=== PATIENT | female | born 1955 | race American Indian/Alaskan Native ===

== ENCOUNTER 2018-04-06 17:02 | Emergency (ER) | payer SELFPAY ==
[2018-04-06 17:20] VITALS: BP 139/83
== END 2018-04-06 18:10 | disposition left against medical advice (07) ==
LOC: ED 17:02
DX: R07.89 Other chest pain (principal); Z53.21 Procedure and treatment not carried out due to patient leaving prior to being seen by health care provider
CPT/HCPCS: 93005; 93010

== ENCOUNTER 2018-06-17 11:44 | Emergency (ER) | payer MEDICARE ==
[2018-06-17 11:50] VITALS: BP 117/77
--- NOTE | 2018-06-17 12:26 | Emergency Department Report ---
Minor Respiratory - HPI Chief Complaint: Upper Respiratory Infection Stated Complaint: CHEST COLD Time Seen by Provider: 06/17/18 12:13 Duration: 2 Days Pain Location: Chest Severity: moderate Minor Respiratory: Yes Rhinorrhea, Yes Able to Tolerate Fluids, Yes Cough (patient states this pain in her chest when she coughs she has a cough productive of yellowish sputum), Yes Chest Pain, No Sore Throat, No Ear Pain, No Sick Contacts, No Hemoptysis, No Shortness of Breath, No Fever ED Review of Systems ROS: Stated complaint: CHEST COLD Other details as noted in HPI Comment: All other systems reviewed and negative ED Past Medical Hx - Past Medical History Hx Hypertension: Yes Hx GERD: Yes Hx Arthritis: Yes Hx Asthma: Yes 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 - Surgical History Additional Surgical History: c/s, hyst, lump from under arm, lump from hip - Social History Smoking Status: Never Smoker Substance Use Type: Alcohol - Medications Home Medications: Home Medications Medication Instructions Recorded Confirmed Last Taken Type ALBUTEROL Inhaler (OR & NICU) 2 puff IH QID PRN #1 inhalation 06/17/18 Unknown Rx [ProAir HFA Inhaler] Azithromycin [Zithromax Z-GERARDO] 250 mg PO DAILY #6 tablet 06/17/18 Unknown Rx Benzonatate [Tessalon Perles] 100 mg PO Q8HR #10 capsule 06/17/18 Unknown Rx predniSONE [Deltasone] 10 mg PO .TAPER #21 tab 06/17/18 Unknown Rx Minor Respiratory Exam - Exam General: Vital signs noted. No distress. Alert and acting appropriately. HEENT: Yes Moist Mucous Membranes, No Pharyngeal Erythema, No Pharyngeal Exudates, No Rhinorrhea, No Conjuctival Injection, No Frontal Tenderness, No Maxillary Tenderness Ear: Neither TM Bulge, Neither TM Erythema, Neither EAC Pain, Neither EAC Discharge Neck: Yes Supple, No Adenopathy Lungs: Yes Good Air Exchange, Yes Cough, No Wheezes, No Ronchi, No Stridor, No Labored Respirations, No Retractions, No Use of Accessory Muscles, No Other Abnormal Lung Sounds Heart: Yes Regular, No Murmur Abdomen: Yes Normal Bowel Sounds, No Tenderness, No Peritoneal Signs Skin: No Rash, No Edema Neurologic: Alert and oriented, no deficits. Musculoskeletal: Unremarkable. ED Course Vital Signs 06/17/18 11:46 Temperature 97.7 F Pulse Rate 88 Respiratory 20 Rate Blood Pressure 117/77 O2 Sat by Pulse 100 Oximetry ED Medical Decision Making - Radiology Data Radiology results: image reviewed - Medical Decision Making States that she has a chronic cough for last 3 years and has been told she has acid reflux as well as this chronic cough but feels as though she has not been given a definitive diagnosis. The patient states this is been sick with this cold since her cough is worse. Patient be started on Ms. symptomatic relief for upper respiratory infection patient be given follow-up with primary care pulmonology and GI here in [place] so she's just moved here. Critical care attestation.: If time is entered above; I have spent that time in minutes in the direct care of this critically ill patient, excluding procedure time. ED Disposition Clinical Impression: Acute bronchitis Disposition: DC-01 TO HOME OR SELFCARE Is pt being admited?: No Does the pt Need Aspirin: No Condition: Stable Instructions: Acute Bronchitis (ED) Referrals: STAR BERNABE MD [Primary Care Provider] - 3-5 Days LUIS SPAIN MD [Staff Physician] - 7-10 days ROBSON STOVALL MD [Staff Physician] - 7-10 days Time of Disposition: 14:46
--- NOTE | 2018-06-17 13:13 | XRay Report ---
ROUTINE CHEST, TWO VIEWS: HISTORY: Productive cough. The trachea, heart, mediastinal contour, lung melgar and bony thorax are unremarkable. IMPRESSION: Unremarkable chest x-ray.
== END 2018-06-17 15:03 | disposition home or self-care (01) ==
LOC: ED 11:44
DX: J20.9 Acute bronchitis, unspecified (principal)
CPT/HCPCS: 71046

== ENCOUNTER 2018-07-17 18:25 | Emergency (ER) | payer MEDICARE ==
[2018-07-17] MEDS ORDERED: LIDOCAINE VISCOUS 2% PO ONE (19:04)
[2018-07-17] MEDS ORDERED: PROTONIX IV ONE (19:04)
[2018-07-17] MEDS ORDERED: NACL 0.9% 1000 ML 1,000 ML IV ONE (19:04)
[2018-07-17 19:18] LABS: Basophils # (Auto) 0.1 K/mm3 (0.0-0.1); Basophils % (Auto) 0.9 % (0.0-1.8); Eosinophils # (Auto) 0.1 K/mm3 (0.0-0.4); Eosinophils % (Auto) 0.9 % (0.0-4.3); Hematocrit 41.2 % (30.3-42.9); Hemoglobin 13.5 gm/dl (10.1-14.3); Lymphocytes # (Auto) 1.7 K/mm3 (1.2-5.4); Lymphocytes % (Auto) 27.5 % (13.4-35.0); Mean Corpuscular HGB Conc 33 % (30-34); Mean Corpuscular Volume 85 fl (79-97); Monocytes # (Auto) 0.4 K/mm3 (0.0-0.8); Monocytes % (Auto) 6.5 % (0.0-7.3); Platelet Count 242 K/mm3 (140-440); Red Blood Count 4.86 M/mm3 (3.65-5.03); Red Cell Distribution Width 13.6 % (13.2-15.2)
[2018-07-17 19:37] LABS: Albumin 4.4 g/dL (3.9-5); BUN/Creatinine Ratio 17; Blood Urea Nitrogen 15 mg/dL (7-17); Calcium 9.5 mg/dL (8.4-10.2); Hemolysis Index 167
[2018-07-17 19:52] LABS: Alanine Aminotransferase 13 units/L (7-56)
--- NOTE | 2018-07-17 20:01 | XRay Report ---
FINAL REPORT EXAM: XR CHEST 1V AP HISTORY: chest pain TECHNIQUE: Frontal portable view of the chest Comparison: None FINDINGS: There is no evidence of infiltrate, pneumothorax or pleural fluid collection. The cardiac silhouette appears to be normal size. The thoracic aorta is mildly tortuous. The bony structures are unremarkable. IMPRESSION: 1. No evidence of an acute pulmonary process. If further imaging is required, CT chest may be helpful.
[2018-07-17 20:16] LABS: Bilirubin,Urine NEG (Negative); Blood,Urine NEG (Negative); Color,Urine Yellow (Yellow); Mucus,Urine FEW /HPF; Protein,Urine <15 mg/dL mg/dL (Negative); Urobilinogen,Urine < 2.0 mg/dL (<2.0)
--- NOTE | 2018-07-17 20:42 | Emergency Department Report ---
ED General Adult HPI - General Chief complaint: Abdominal Pain Stated complaint: HEADACHE/ABD PAIN Time Seen by Provider: 07/17/18 18:43 Source: patient Mode of arrival: Ambulatory Limitations: No Limitations - History of Present Illness Initial comments: She presents to the emergency department with a chief complaint of epigastric abdominal painstarted on Friday. Patient states she has had a headache this past week and had been taking ibuprofen for a headache when her stomach pain started. Patient tells me that she's taken a whole bottle of aspirin in the last 5 days. Patient then shows me the bottle of medications and is actually ibuprofen and not aspirin. -: Gradual Location: abdomen Radiation: non-radiation Severity scale (0 -10): 2 Consistency: constant Improves with: none Worsens with: none Associated Symptoms: denies other symptoms Treatments Prior to Arrival: none - Related Data Home Medications Medication Instructions Recorded Confirmed Last Taken Amitriptyline [Elavil] 25 mg PO QHS 07/17/18 07/17/18 Unknown Ibuprofen [Ibuprofen Ib] 200 mg PO Q4H 07/17/18 07/17/18 Unknown Multivit-Min/Iron/Folic Acid/K 1 each PO DAILY 07/17/18 07/17/18 Unknown [Centravites Adults Tablet] Omeprazole 20 mg PO QAM 07/17/18 07/17/18 Unknown PARoxetine (NF) [Paxil (Nf)] 30 mg PO DAILY 07/17/18 07/17/18 Unknown Tiotropium [place] [Spiriva] 2 puff IH BID 07/17/18 07/17/18 Unknown amLODIPine [Norvasc] 10 mg PO DAILY 07/17/18 07/17/18 Unknown Previous Rx's Medication Instructions Recorded Last Taken Type ALBUTEROL Inhaler (OR & NICU) 2 puff IH QID PRN #1 inhalation 06/17/18 Unknown Rx [ProAir HFA Inhaler] Benzonatate [Tessalon Perles] 100 mg PO Q8HR #10 capsule 06/17/18 Unknown Rx Esomeprazole Magnesium [Nexium] 40 mg PO QDAY #30 capsule. 07/17/18 Unknown Rx Sucralfate [Carafate] 1 gm PO BID #180 oral.susp 07/17/18 Unknown Rx Allergies Allergy/AdvReac Type Severity Reaction Status Date / Time No Known Allergies Allergy Unverified 04/06/18 17:16 ED Review of Systems ROS: Stated complaint: HEADACHE/ABD PAIN Other details as noted in HPI Comment: All other systems reviewed and negative Constitutional: denies: chills, fever Eyes: denies: eye pain, eye discharge, vision change ENT: denies: ear pain, throat pain Respiratory: denies: cough, shortness of breath, wheezing Cardiovascular: denies: chest pain, palpitations Endocrine: no symptoms reported Gastrointestinal: abdominal pain. 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 - Surgical History Past Surgical History?: Yes Additional Surgical History: c/s, hyst, lump from under arm, lump from hip - Social History Smoking Status: Never Smoker Substance Use Type: None - Medications Home Medications: Home Medications Medication Instructions Recorded Confirmed Last Taken Type ALBUTEROL Inhaler (OR & NICU) 2 puff IH QID PRN #1 inhalation 06/17/18 07/17/18 Unknown Rx [ProAir HFA Inhaler] Benzonatate [Tessalon Perles] 100 mg PO Q8HR #10 capsule 06/17/18 07/17/18 Unknown Rx Amitriptyline [Elavil] 25 mg PO QHS 07/17/18 07/17/18 Unknown History Esomeprazole Magnesium [Nexium] 40 mg PO QDAY #30 capsule. 07/17/18 Unknown Rx Ibuprofen [Ibuprofen Ib] 200 mg PO Q4H 07/17/18 07/17/18 Unknown History Multivit-Min/Iron/Folic Acid/K 1 each PO DAILY 07/17/18 07/17/18 Unknown History [Centravites Adults Tablet] Omeprazole 20 mg PO QAM 07/17/18 07/17/18 Unknown History PARoxetine (NF) [Paxil (Nf)] 30 mg PO DAILY 07/17/18 07/17/18 Unknown History Sucralfate [Carafate] 1 gm PO BID #180 oral.susp 07/17/18 Unknown Rx Tiotropium [place] [Spiriva] 2 puff IH BID 07/17/18 07/17/18 Unknown History amLODIPine [Norvasc] 10 mg PO DAILY 07/17/18 07/17/18 Unknown History ED Physical Exam - General Limitations: No Limitations General appearance: alert, in no apparent distress - Head Head exam: Present: atraumatic, normocephalic - Eye Eye exam: Present: normal appearance, PERRL, EOMI - ENT ENT exam: Present: mucous membranes dry - Neck Neck exam: Present: normal inspection - Respiratory Respiratory exam: Present: normal lung sounds bilaterally. Absent: respiratory distress, wheezes, rales, rhonchi - Cardiovascular Cardiovascular Exam: Present: regular rate, normal rhythm. Absent: systolic murmur, diastolic murmur, rubs, gallop - GI/Abdominal GI/Abdominal exam: Present: soft, normal bowel sounds. Absent: distended, tenderness - Extremities Exam Extremities exam: Present: normal inspection - Back Exam Back exam: Present: normal inspection - Neurological Exam Neurological exam: Present: alert, oriented X3, CN II-XII intact. Absent: motor sensory deficit - Psychiatric Psychiatric exam: Present: normal affect, normal mood - Skin Skin exam: Present: warm, dry, intact, normal color. Absent: rash ED Course Vital Signs 07/17/18 07/17/18 07/17/18 18:30 19:01 19:28 Temperature 99.1 F 98.5 F Pulse Rate 109 H 91 H Respiratory 18 18 19 Rate Blood Pressure 139/85 Blood Pressure 134/82 [Left] O2 Sat by Pulse 99 100 99 Oximetry 07/17/18 21:01 Temperature Pulse Rate Respiratory Rate Blood Pressure 138/73 Blood Pressure [Left] O2 Sat by Pulse 98 Oximetry ED Medical Decision Making - Lab Data Result diagrams: 07/17/18 19:01 07/17/18 19:01 Lab Results 07/17/18 07/17/18 07/17/18 Range/Units 19:01 19:01 20:03 WBC 6.1 (4.5-11.0) K/mm3 RBC 4.86 (3.65-5.03) M/mm3 Hgb 13.5 (10.1-14.3) gm/dl Hct 41.2 (30.3-42.9) % MCV 85 (79-97) fl MCH 28 (28-32) pg MCHC 33 (30-34) % RDW 13.6 (13.2-15.2) % Plt Count 242 (140-440) K/mm3 Lymph % (Auto) 27.5 (13.4-35.0) % [place] % (Auto) 6.5 (0.0-7.3) % Eos % (Auto) 0.9 (0.0-4.3) % Baso % (Auto) 0.9 (0.0-1.8) % Lymph # 1.7 (1.2-5.4) K/mm3 [place] # 0.4 (0.0-0.8) K/mm3 Eos # 0.1 (0.0-0.4) K/mm3 Baso # 0.1 (0.0-0.1) K/mm3 Seg Neutrophils % 64.2 (40.0-70.0) % Seg Neutrophils # 3.9 (1.8-7.7) K/mm3 Sodium 137 (137-145) mmol/L Potassium 4.1 (3.6-5.0) mmol/L Chloride 99.4 (98-107) mmol/L Carbon Dioxide 23 (22-30) mmol/L Anion Gap 19 mmol/L BUN 15 (7-17) mg/dL Creatinine 0.9 (0.7-1.2) mg/dL Estimated GFR > 60 ml/min BUN/Creatinine Ratio 17 % Glucose 102 H (65-100) mg/dL Calcium 9.5 (8.4-10.2) mg/dL Total Bilirubin 0.30 (0.1-1.2) mg/dL AST 27 (5-40) units/L ALT 13 (7-56) units/L Alkaline Phosphatase 91 (35-129) units/L Troponin T < 0.010 (0.00-0.029) ng/mL Total Protein 8.1 (6.3-8.2) g/dL Albumin 4.4 (3.9-5) g/dL Albumin/Globulin Ratio 1.2 % Lipase 52 (13-60) units/L Urine Color Yellow (Yellow) Urine Turbidity Clear (Clear) Urine pH 5.0 (5.0-7.0) Ur Specific [place] 1.013 (1.003-1.030) Urine Protein <15 mg/dl (Negative) mg/dL Urine Glucose (UA) Neg (Negative) mg/dL Urine Ketones 20 (Negative) mg/dL Urine Blood Neg (Negative) Urine Nitrite Neg (Negative) Urine Bilirubin Neg (Negative) Urine Urobilinogen < 2.0 (<2.0) mg/dL Ur Leukocyte Esterase Neg (Negative) Urine WBC (Auto) 2.0 (0.0-6.0) /HPF Urine RBC (Auto) 2.0 (0.0-6.0) /HPF U Epithel Cells (Auto) 1.0 (0-13.0) /HPF Urine Mucus Few /HPF 07/17/18 Range/Units 20:23 WBC (4.5-11.0) K/mm3 RBC (3.65-5.03) M/mm3 Hgb (10.1-14.3) gm/dl Hct (30.3-42.9) % MCV (79-97) fl MCH (28-32) pg MCHC (30-34) % RDW (13.2-15.2) % Plt Count (140-440) K/mm3 Lymph % (Auto) (13.4-35.0) % [place] % (Auto) (0.0-7.3) % Eos % (Auto) (0.0-4.3) % Baso % (Auto) (0.0-1.8) % Lymph # (1.2-5.4) K/mm3 [place] # (0.0-0.8) K/mm3 Eos # (0.0-0.4) K/mm3 Baso # (0.0-0.1) K/mm3 Seg Neutrophils % (40.0-70.0) % Seg Neutrophils # (1.8-7.7) K/mm3 Sodium (137-145) mmol/L Potassium (3.6-5.0) mmol/L Chloride (98-107) mmol/L Carbon Dioxide (22-30) mmol/L Anion Gap mmol/L BUN (7-17) mg/dL Creatinine (0.7-1.2) mg/dL Estimated GFR ml/min BUN/Creatinine Ratio % Glucose (65-100) mg/dL Calcium (8.4-10.2) mg/dL Total Bilirubin (0.1-1.2) mg/dL AST (5-40) units/L ALT (7-56) units/L Alkaline Phosphatase (35-129) units/L Troponin T < 0.010 (0.00-0.029) ng/mL Total Protein (6.3-8.2) g/dL Albumin (3.9-5) g/dL Albumin/Globulin Ratio % Lipase (13-60) units/L Urine Color (Yellow) Urine Turbidity (Clear) Urine pH (5.0-7.0) Ur Specific [place] (1.003-1.030) Urine Protein (Negative) mg/dL Urine Glucose (UA) (Negative) mg/dL Urine Ketones (Negative) mg/dL Urine Blood (Negative) Urine Nitrite (Negative) Urine Bilirubin (Negative) Urine Urobilinogen (<2.0) mg/dL Ur Leukocyte Esterase (Negative) Urine WBC (Auto) (0.0-6.0) /HPF Urine RBC (Auto) (0.0-6.0) /HPF U Epithel Cells (Auto) (0-13.0) /HPF Urine Mucus /HPF - EKG Data EKG shows normal: sinus rhythm Rate: normal - EKG Data When compared to previous EKG there are: no significant change - Radiology Data Radiology results: report reviewed - Medical Decision Making Discussed with patient that it is not good practice to take 100 his ibuprofen over 5 days. Discussed results the patient Critical care attestation.: If time is entered above; I have spent that time in minutes in the direct care of this critically ill patient, excluding procedure time. ED Disposition Clinical Impression: Abdominal pain Disposition: DC-01 TO HOME OR SELFCARE Is pt being admited?: No Does the pt Need Aspirin: No Condition: Stable Instructions: Abdominal Pain (ED) Additional Instructions: return if worse Prescriptions: Esomeprazole Magnesium [Nexium] 40 mg PO QDAY #30 capsule. Sucralfate [Carafate] 1 gm PO BID #180 oral.susp Referrals: STAR ENRIQUE MD [Primary Care Provider] - 3-5 Days [facility] [Provider Group] - 3-5 Days [facility], [Provider Group] - 3-5 Days Time of Disposition: 21:14
[2018-07-19 12:42] VITALS: BP 138/73
== END 2018-07-17 21:35 | disposition home or self-care (01) ==
LOC: ED 18:25
DX: R10.13 Epigastric pain (principal); R51 Headache; I10 Essential (primary) hypertension; K21.9 Gastro-esophageal reflux disease without esophagitis; M19.90 Unspecified osteoarthritis, unspecified site; J45.909 Unspecified asthma, uncomplicated
CPT/HCPCS: 36415; 71045; 80053; 81001; 83690; 84484; 85025; 93005; 93010; 96374; 99284; C9113; J7030

== ENCOUNTER 2018-08-10 07:56 | Outpatient (CLI) | payer MEDICARE ==
--- NOTE | 2018-08-11 11:58 | Fluoroscopy Report ---
UPPER GI SERIES History: GERD with apnea. Findings: 31 fluoroscopic images were captured during this exam. Deglutition was normal. No evidence for aspiration. The cervical and thoracic esophagus are normal caliber and mucosal pattern. Normal motility. The patient describes dysphagia in the upper esophagus. No abnormality is identified in this area. No hiatal hernia or reflux was witnessed during this exam. There is a small extrinsic compression defect on the greater curvature of the stomach. The etiology of this is unclear. This does not appear to represent a mass or ulceration. The gastric mucosa is within normal limits. The duodenal bulb and duodenal sweep are unremarkable. Impression: No evidence for hiatal hernia or reflux during this exam. Curious focal extrinsic compression defect on the greater curvature of the stomach. This has a benign appearance but the etiology of this compression is unclear. This is in the vicinity of the ligament of [place].
== END 2018-08-10 07:57 | disposition home or self-care (01) ==
LOC: XRAY 07:56
PROVIDERS: ATTEND Internal Medicine
DX: K31.89 Other diseases of stomach and duodenum (principal); K21.9 Gastro-esophageal reflux disease without esophagitis; I10 Essential (primary) hypertension; J45.909 Unspecified asthma, uncomplicated; M19.90 Unspecified osteoarthritis, unspecified site
CPT/HCPCS: 74247

== ENCOUNTER 2018-10-14 22:51 | Observation (INO) | payer MEDICARE ==
[2018-10-14] MEDS ORDERED: ASPIRIN PO ONE (23:07)
[2018-10-14 23:24] LABS: Basophils # (Auto) 0.1 K/mm3 (0.0-0.1); Basophils % (Auto) 1.8 % (0.0-1.8); Eosinophils # (Auto) 0.1 K/mm3 (0.0-0.4); Eosinophils % (Auto) 1.1 % (0.0-4.3); Hematocrit 38.7 % (30.3-42.9); Hemoglobin 12.6 gm/dl (10.1-14.3); Lymphocytes # (Auto) 0.8 K/mm3 (1.2-5.4); Lymphocytes % (Auto) 17.3 % (13.4-35.0); Mean Corpuscular HGB Conc 33 % (30-34); Mean Corpuscular Volume 86 fl (79-97); Monocytes # (Auto) 0.2 K/mm3 (0.0-0.8); Monocytes % (Auto) 4.3 % (0.0-7.3); Platelet Count 247 K/mm3 (140-440); Red Blood Count 4.51 M/mm3 (3.65-5.03); Red Cell Distribution Width 14.3 % (13.2-15.2)
[2018-10-14 23:42] LABS: BUN/Creatinine Ratio 23; Blood Urea Nitrogen 18 mg/dL (7-17); Calcium 8.6 mg/dL (8.4-10.2); Hemolysis Index 30
--- NOTE | 2018-10-15 00:25 | XRay Report ---
PROCEDURE: XR CHEST 1V AP TECHNIQUE: Chest radiograph single view. HISTORY: Chest Pain COMPARISONS: July 17, 2018 . FINDINGS: Heart: Normal. Mediastinum/Vessels: Normal. Lungs/Pleural space: Lungs are expanded. There is focal fibrosis at the left lung base. There are no infiltrates, effusions or pneumothoraces.. Bony thorax: No acute osseous abnormality. Life support devices: None. IMPRESSION: Heart size is normal.. Lungs are expanded. There is focal fibrosis at the left lung base . There are no infiltrates, effusions or pneumothoraces.. This document is electronically signed by Faheem Quick MD., Oct 15 2018 12:24:08 AM ET
--- NOTE | 2018-10-15 00:57 | Emergency Department Report ---
ED Chest Pain HPI - General Chief Complaint: Chest Pain Stated Complaint: CHEST PAIN Time Seen by Provider: 10/15/18 00:45 Source: patient Mode of arrival: Ambulatory Limitations: No Limitations - History of Present Illness Initial Comments: Patient is 63 years old female with history of hypertension. Patient presented to the ER complaining of left-sided chest pain, tightness in nature with radiation to her left arm. Patient stated that pain started today. Patient denied any shortness of breath, cough or chills or fever. He denied any abdominal pain, nausea or vomiting. MD Complaint: chest pain -: This morning Onset: during rest Pain Location: left chest Severity scale (0 -10): 3 Quality: tightness Improves With: nothing Worsens With: nothing - Related Data Home Medications Medication Instructions Recorded Confirmed Last Taken Amitriptyline [Elavil] 25 mg PO QHS 07/17/18 07/17/18 Unknown Ibuprofen [Ibuprofen Ib] 200 mg PO Q4H 07/17/18 07/17/18 Unknown Multivit-Min/Iron/Folic Acid/K 1 each PO DAILY 07/17/18 07/17/18 Unknown [Centravites Adults Tablet] Omeprazole 20 mg PO QAM 07/17/18 07/17/18 Unknown PARoxetine (NF) [Paxil (Nf)] 30 mg PO DAILY 07/17/18 07/17/18 Unknown Tiotropium [place] [Spiriva] 2 puff IH BID 07/17/18 07/17/18 Unknown amLODIPine [Norvasc] 10 mg PO DAILY 07/17/18 07/17/18 Unknown Previous Rx's Medication Instructions Recorded Last Taken Type ALBUTEROL Inhaler (OR & NICU) 2 puff IH QID PRN #1 inhalation 06/17/18 Unknown Rx [ProAir HFA Inhaler] Benzonatate [Tessalon Perles] 100 mg PO Q8HR #10 capsule 06/17/18 Unknown Rx Esomeprazole Magnesium [Nexium] 40 mg PO QDAY #30 capsule. 07/17/18 Unknown Rx Sucralfate [Carafate] 1 gm PO BID #180 oral.susp 07/17/18 Unknown Rx Allergies Allergy/AdvReac Type Severity Reaction Status Date / Time No Known Allergies Allergy Verified 10/15/18 00:47 Heart Score - HEART Score History: Moderately suspicious EKG: Non-specific Age: 45-65 Risk factors: 1-2 risk factors Troponin: < normal limit HEART Score: 4 - Critical Actions Critical Actions: 4-6 pts:12-16.6% risk of adverse cardiac event. 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 - Surgical History Past Surgical History?: Yes Additional Surgical History: c/s, hyst, lump from under arm, lump from hip - Social History Smoking Status: Never Smoker Substance Use Type: None - Medications Home Medications: Home Medications Medication Instructions Recorded Confirmed Last Taken Type ALBUTEROL Inhaler (OR & NICU) 2 puff IH QID PRN #1 inhalation 06/17/18 07/17/18 Unknown Rx [ProAir HFA Inhaler] Benzonatate [Tessalon Perles] 100 mg PO Q8HR #10 capsule 06/17/18 07/17/18 Unknown Rx Amitriptyline [Elavil] 25 mg PO QHS 07/17/18 07/17/18 Unknown History Esomeprazole Magnesium [Nexium] 40 mg PO QDAY #30 capsule.dr 07/17/18 Unknown Rx Ibuprofen [Ibuprofen Ib] 200 mg PO Q4H 07/17/18 07/17/18 Unknown History Multivit-Min/Iron/Folic Acid/K 1 each PO DAILY 07/17/18 07/17/18 Unknown History [Centravites Adults Tablet] Omeprazole 20 mg PO QAM 07/17/18 07/17/18 Unknown History PARoxetine (NF) [Paxil (Nf)] 30 mg PO DAILY 07/17/18 07/17/18 Unknown History Sucralfate [Carafate] 1 gm PO BID #180 oral.susp 07/17/18 Unknown Rx Tiotropium [place] [Spiriva] 2 puff IH BID 07/17/18 07/17/18 Unknown History amLODIPine [Norvasc] 10 mg PO DAILY 07/17/18 07/17/18 Unknown History ED Physical Exam - General Limitations: No Limitations General appearance: alert, in no apparent distress - Head Head exam: Present: atraumatic, normocephalic, normal inspection - Eye Eye exam: Present: normal appearance, PERRL - ENT ENT exam: Present: normal exam, normal orophraynx, mucous membranes moist - Neck Neck exam: Present: normal inspection, full ROM. Absent: tenderness, meningismus, lymphadenopathy, thyromegaly - Respiratory Respiratory exam: Present: normal lung sounds bilaterally - Cardiovascular Cardiovascular Exam: Present: regular rate, normal rhythm, normal heart sounds - GI/Abdominal GI/Abdominal exam: Present: soft, normal bowel sounds. Absent: distended, tenderness, guarding, rebound, rigid, organomegaly, mass, bruit, pulsatile mass - Extremities Exam Extremities exam: Present: normal inspection, full ROM, normal capillary refill - Back Exam Back exam: Present: normal inspection, full ROM. Absent: tenderness, CVA tenderness (R), CVA tenderness (L), muscle spasm, paraspinal tenderness, verte bral tenderness - Neurological Exam Neurological exam: Present: alert, oriented X3, CN II-XII intact, normal gait, reflexes normal - Skin Skin exam: Present: warm, intact, normal color ED Course Vital Signs 10/14/18 10/15/18 23:04 00:31 Temperature 98.7 F 98.3 F Pulse Rate 107 H 81 Respiratory 16 14 Rate Blood Pressure 141/85 Blood Pressure 136/82 [Left] O2 Sat by Pulse 100 100 Oximetry ED Medical Decision Making - Lab Data Result diagrams: 10/14/18 23:11 10/14/18 23:11 - EKG Data -: EKG Interpreted by Ms EKG shows normal: sinus rhythm Rate: normal - EKG Data Interpretation: no acute changes - Radiology Data Radiology results: report reviewed Chest x-ray is unremarkable. - Medical Decision Making Patient is 63 years old female with history of hypertension. Patient presented to the ER complaining of left-sided chest pain, tightness in nature with radiation to her left arm. Patient stated that pain started today. Patient denied any shortness of breath, cough or chills or fever. He denied any abdominal pain, nausea or vomiting. EKG there is no ST elevation or depression. Chest x-ray is unremarkable. One set of troponin is negative. The patient heart discordance for. Patient will need to be admitted for rule out. Critical care attestation.: If time is entered above; I have spent that time in minutes in the direct care of this critically ill patient, excluding procedure time. ED Disposition Clinical Impression: Chest pain Disposition: DC-09 OP ADMIT IP TO THIS HOSP Is pt being admited?: Yes Condition: Stable Instructions: Chest Pain (ED) Referrals: AMY JENNINGS MD [Primary Care Provider] - 3-5 Days
[2018-10-15] MEDS ORDERED: ASPIRIN ONE (01:20)
[2018-10-15] MEDS ORDERED: SODIUM CHLORIDE FLUSH SYRINGE 10 ML IV PRN ×3 (02:23→06:09)
[2018-10-15] MEDS ORDERED: TYLENOL PO PRN ×2 (02:23→06:09)
[2018-10-15] MEDS ORDERED: ZOFRAN IV PRN (02:23)
[2018-10-15] MEDS ORDERED: AMBIEN PO PRN (02:44)
[2018-10-15] MEDS ORDERED: MORPHINE IV PRN (02:44)
[2018-10-15 03:38] LABS: BUN/Creatinine Ratio 27; Blood Urea Nitrogen 19 mg/dL (7-17); Calcium 8.4 mg/dL (8.4-10.2); HDL Cholesterol 64 mg/dL (40-59); Hemolysis Index 0; LDL Cholesterol,Direct 160 mg/dL (50-130)
--- NOTE | 2018-10-15 05:17 | History and Physical Report ---
<RHIANNA HUERTA - Last Filed: 10/15/18 05:44> History of Present Illness Date of examination: 10/15/18 Date of admission: 10/15/18 02:23 Chief complaint: Chest pain 2 days History of present illness: Patient is 63 years old female with PMHx of anxiety and hypertension who presents to the ER with complaining of left-sided chest pain for 2 days. Patient states that this chest pain started yesterday, it is a chest tightness with radiation to her left arm. Patient stated that she checked her BP at home which was elevated, she went to see her PCP but he was not available. Pt states that she has been out of her blood pressure medications and had been attempted to get her PCP to renew them, when she started to have chest pain, she got concern and drove to the hospital. Patient reports chest pressure like, palpitation and diaphoresis, she denied shortness of breath, denies nausea or vomiting, denies cough, denies fever or chills. Patient reports prior history of chest pain for which she was evaluated at least 3 times in the past, she had several stress test which were negative. In the ER patient's EKG showed no acute STEMI criteria, first set of cardiac enzymes was negative, chest x-ray was negative, patient was admitted for further evaluation of her chest pain. Past History Past Medical History: hypertension Past Surgical History: No surgical history Social history: , lives with family Family history: no significant family history Medications and Allergies Allergies Allergy/AdvReac Type Severity Reaction Status Date / Time No Known Allergies Allergy Verified 10/15/18 00:47 Home Medications Medication Instructions Recorded Confirmed Last Taken Type ALBUTEROL Inhaler (OR & NICU) 2 puff IH QID PRN #1 inhalation 06/17/18 10/15/18 Unknown Rx [ProAir HFA Inhaler] Amitriptyline [Elavil] 25 mg PO QHS 07/17/18 10/15/18 Unknown History Ibuprofen [Ibuprofen Ib] 200 mg PO Q4H 07/17/18 10/15/18 Unknown History Multivit-Min/Iron/Folic Acid/K 1 each PO DAILY 07/17/18 10/15/18 Unknown History [Centravites Adults Tablet] Omeprazole 20 mg PO QAM 07/17/18 10/15/18 Unknown History PARoxetine (NF) [Paxil (Nf)] 30 mg PO DAILY 07/17/18 10/15/18 Unknown History Acetaminophen [Acetaminophen TAB] 650 mg PO Q4H PRN tablet 10/15/18 Unknown Rx Aspirin EC [Aspirin Enteric Coated 325 mg PO QDAY tablet 10/15/18 Unknown Rx TAB] Atenolol [Tenormin] 25 mg PO DAILY #30 tablet 10/15/18 Unknown Rx AtorvaSTATin [Lipitor] 10 mg PO QHS tablet 10/15/18 Unknown Rx Levocetirizine Dihydrochloride 5 mg PO DAILY 10/15/18 10/15/18 Unknown History Linaclotide [Linzess] 145 mcg PO QDAY 10/15/18 10/15/18 Unknown History Montelukast [Singulair] 1 tab PO DAILY 10/15/18 10/15/18 Unknown History Zolpidem [Ambien] 5 mg PO QHS PRN tablet 10/15/18 Unknown Rx amLODIPine [Norvasc] 10 mg PO DAILY #30 tablet 10/15/18 Unknown Rx Active Meds: Active Medications Acetaminophen (Tylenol) 650 mg PO Q4H PRN PRN Reason: Pain MILD(1-3)/Fever >100.5/TRAYLOR Aspirin (Ecotrin) 325 mg PO QDAY BRADY Atorvastatin Calcium (Lipitor) 10 mg PO QHS BRADY Morphine Sulfate (Morphine) 2 mg IV Q2H PRN PRN Reason: Chest Pain unrelieved by NTG Ondansetron HCl (Zofran) 4 mg IV Q8H PRN PRN Reason: Nausea And Vomiting Sodium Chloride (Sodium Chloride Flush Syringe 10 Ml) 10 ml IV BID BRDAY Sodium Chloride (Sodium Chloride Flush Syringe 10 Ml) 10 ml IV PRN PRN PRN Reason: LINE FLUSH Zolpidem Tartrate (Ambien) 5 mg PO QHS PRN PRN Reason: Sleep Review of Systems Cardiovascular: chest pain, palpitations Exam - Constitutional Vitals: Temp Pulse Resp BP Pulse Ox 98.3 F 73 22 124/63 99 10/15/18 00:31 10/15/18 03:00 10/15/18 03:00 10/15/18 03:00 10/15/18 03:00 General appearance: Present: no acute distress - EENT Eyes: Present: PERRL, EOM intact ENT: hearing intact - Neck Neck: Present: normal ROM - Respiratory Respiratory effort: normal Respiratory: bilateral: CTA - Cardiovascular Rhythm: regular - Extremities Extremities: no ischemia Peripheral Pulses: within normal limits - Abdominal General gastrointestinal: Present: non-tender, non-distended Female genitourinary: Present: deferred - Rectal Rectal Exam: deferred - Integumentary Integumentary: Present: clear, warm, dry - Musculoskeletal Musculoskeletal: strength equal bilaterally - Psychiatric Psychiatric: cooperative - Neurologic Neurologic: moves all extremities Results - Labs CBC & Chem 7: 10/14/18 23:11 10/15/18 02:00 Labs: Laboratory Last Values WBC 4.7 K/mm3 (4.5-11.0) 10/14/18 23:11 RBC 4.51 M/mm3 (3.65-5.03) 10/14/18 23:11 Hgb 12.6 gm/dl (10.1-14.3) 10/14/18 23:11 Hct 38.7 % (30.3-42.9) 10/14/18 23:11 MCV 86 fl (79-97) 10/14/18 23:11 MCH 28 pg (28-32) 10/14/18 23:11 MCHC 33 % (30-34) 10/14/18 23:11 RDW 14.3 % (13.2-15.2) 10/14/18 23:11 Plt Count 247 K/mm3 (140-440) 10/14/18 23:11 Lymph % (Auto) 17.3 % (13.4-35.0) 10/14/18 23:11 Hand % (Auto) 4.3 % (0.0-7.3) 10/14/18 23:11 Eos % (Auto) 1.1 % (0.0-4.3) 10/14/18 23:11 Baso % (Auto) 1.8 % (0.0-1.8) 10/14/18 23:11 Lymph # 0.8 K/mm3 (1.2-5.4) L 10/14/18 23:11 Hand # 0.2 K/mm3 (0.0-0.8) 10/14/18 23:11 Eos # 0.1 K/mm3 (0.0-0.4) 10/14/18 23:11 Baso # 0.1 K/mm3 (0.0-0.1) 10/14/18 23:11 Seg Neutrophils % 75.5 % (40.0-70.0) H 10/14/18 23:11 Seg Neutrophils # 3.6 K/mm3 (1.8-7.7) 10/14/18 23:11 Sodium 140 mmol/L (137-145) 10/15/18 02:00 Potassium 3.9 mmol/L (3.6-5.0) 10/15/18 02:00 Chloride 101.6 mmol/L (98-107) 10/15/18 02:00 Carbon Dioxide 25 mmol/L (22-30) 10/15/18 02:00 Anion Gap 17 mmol/L 10/15/18 02:00 BUN 19 mg/dL (7-17) H 10/15/18 02:00 Creatinine 0.7 mg/dL (0.7-1.2) 10/15/18 02:00 Estimated GFR > 60 ml/min 10/15/18 02:00 BUN/Creatinine Ratio 27 % 10/15/18 02:00 Glucose 104 mg/dL (65-100) H 10/15/18 02:00 Hemoglobin A1c 5.6 % (4-6) 10/15/18 Unknown Calcium 8.4 mg/dL (8.4-10.2) 10/15/18 02:00 Troponin T < 0.010 ng/mL (0.00-0.029) 10/15/18 02:22 Triglycerides 97 mg/dL (2-149) 10/15/18 02:00 Cholesterol 218 mg/dL (50-199) H 10/15/18 02:00 LDL Cholesterol Direct 160 mg/dL (50-130) H 10/15/18 02:00 HDL Cholesterol 64 mg/dL (40-59) H 10/15/18 02:00 Cholesterol/HDL Ratio 3.40 % 10/15/18 02:00 Assessment and Plan Assessment and plan: 1. Chest pain rule out ACS 2. History of hypertension (his BP stable) 3. 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 Supports here Plan discussed with patient's voice understanding Patient's condition and plan of care discussed with Advance Directives: Yes VTE prophylaxis?: Mechanical Plan of care discussed with patient/family: Yes <NORTHCANDELARIO - Last Filed: 10/15/18 21:21> History of Present Illness Date of admission: 10/15/18 02:23 Exam - Constitutional Vitals: Temp Pulse Resp BP Pulse Ox 97.9 F 78 18 117/68 99 10/15/18 07:34 10/15/18 07:34 10/15/18 07:34 10/15/18 07:34 10/15/18 07:34 Results - Labs CBC & Chem 7: 10/15/18 05:31 10/15/18 02:00 Labs: Laboratory Last Values WBC 3.8 K/mm3 (4.5-11.0) L 10/15/18 05:31 RBC 4.28 M/mm3 (3.65-5.03) 10/15/18 05:31 Hgb 12.2 gm/dl (10.1-14.3) 10/15/18 05:31 Hct 37.0 % (30.3-42.9) 10/15/18 05:31 MCV 86 fl (79-97) 10/15/18 05:31 MCH 29 pg (28-32) 10/15/18 05:31 MCHC 33 % (30-34) 10/15/18 05:31 RDW 13.8 % (13.2-15.2) 10/15/18 05:31 Plt Count 209 K/mm3 (140-440) 10/15/18 05:31 Lymph % (Auto) 34.3 % (13.4-35.0) 10/15/18 05:31 Hand % (Auto) 7.2 % (0.0-7.3) 10/15/18 05:31 Eos % (Auto) 1.6 % (0.0-4.3) 10/15/18 05:31 Baso % (Auto) 1.2 % (0.0-1.8) 10/15/18 05:31 Lymph # 1.3 K/mm3 (1.2-5.4) 10/15/18 05:31 Hand # 0.3 K/mm3 (0.0-0.8) 10/15/18 05:31 Eos # 0.1 K/mm3 (0.0-0.4) 10/15/18 05:31 Baso # 0.0 K/mm3 (0.0-0.1) 10/15/18 05:31 Seg Neutrophils % 55.7 % (40.0-70.0) 10/15/18 05:31 Seg Neutrophils # 2.1 K/mm3 (1.8-7.7) 10/15/18 05:31 Sodium 140 mmol/L (137-145) 10/15/18 02:00 Potassium 3.9 mmol/L (3.6-5.0) 10/15/18 02:00 Chloride 101.6 mmol/L (98-107) 10/15/18 02:00 Carbon Dioxide 25 mmol/L (22-30) 10/15/18 02:00 Anion Gap 17 mmol/L 10/15/18 02:00 BUN 19 mg/dL (7-17) H 10/15/18 02:00 Creatinine 0.7 mg/dL (0.7-1.2) 10/15/18 02:00 Estimated GFR > 60 ml/min 10/15/18 02:00 BUN/Creatinine Ratio 27 % 10/15/18 02:00 Glucose 104 mg/dL (65-100) H 10/15/18 02:00 Hemoglobin A1c 5.6 % (4-6) 10/15/18 Unknown Calcium 8.4 mg/dL (8.4-10.2) 10/15/18 02:00 Troponin T < 0.010 ng/mL (0.00-0.029) 10/15/18 05:31 Triglycerides 97 mg/dL (2-149) 10/15/18 02:00 Cholesterol 218 mg/dL (50-199) H 10/15/18 02:00 LDL Cholesterol Direct 160 mg/dL (50-130) H 10/15/18 02:00 HDL Cholesterol 64 mg/dL (40-59) H 10/15/18 02:00 Cholesterol/HDL Ratio 3.40 % 10/15/18 02:00 Assessment and Plan Assessment and plan: I personally discussed the patient with the DIRECTOR STYLE-C and I agree with the above assessment and plan
[2018-10-15 06:06] LABS: Basophils % (Auto) 1.2 % (0.0-1.8); Eosinophils # (Auto) 0.1 K/mm3 (0.0-0.4); Eosinophils % (Auto) 1.6 % (0.0-4.3); Hemoglobin 12.2 gm/dl (10.1-14.3); Lymphocytes # (Auto) 1.3 K/mm3 (1.2-5.4); Lymphocytes % (Auto) 34.3 % (13.4-35.0); Monocytes # (Auto) 0.3 K/mm3 (0.0-0.8); Monocytes % (Auto) 7.2 % (0.0-7.3)
[2018-10-15 06:27] LABS: Mean Corpuscular HGB Conc 33 % (30-34); Mean Corpuscular Volume 86 fl (79-97); Platelet Count 209 K/mm3 (140-440); Red Blood Count 4.28 M/mm3 (3.65-5.03); Red Cell Distribution Width 13.8 % (13.2-15.2)
[2018-10-15 07:36] VITALS: BP 117/68
[2018-10-15] MEDS ORDERED: SODIUM CHLORIDE FLUSH SYRINGE 10 ML IV SCH ×2 (10:00)
--- NOTE | 2018-10-15 11:07 | Discharge Summary ---
Providers - Providers Date of Admission: 10/15/18 02:23 Date of discharge: 10/15/18 Attending physician: ANDRA PIÑA 10/15/18 Consult to Cardiac Rehabilitation [CONS] Routine Reason For Exam: Phase I Primary care physician: STAR BERNABE Hospitalization Condition: Good Pertinent studies: Cardiac isoenzymes unremarkable. EKG unremarkable. Hospital course: Patient presented with chief complaint of chest pain. After being anxious that she did not get her blood pressure medications were primary care physician. This is happening before patient is at 3 negative stress test. Unremarkable EKG. Patient history of anxiety and she is very anxious at this time. Remains chest pain-free states on the right was more medications. Patient's blood pressure was not severely out of range. Disposition: - TO HOME OR SELFCARE - Discharge Diagnoses (1) Hypertension Status: Acute Comment: Patient's blood pressure has optimal control on 10 mg of amlodipine and 25 mg of atenolol. (2) Chest pain Status: Acute Comment: remains chest pain-free cardiac workup unremarkable. (3) Generalized anxiety disorder Status: Acute Comment: Continue antianxiety medications follow-up with primary care physician 3-5 days. Core Measure Documentation - Palliative Care Palliative Care/ Comfort Measures: Not Applicable - Core Measures Any of the following diagnoses?: none Exam - Constitutional Vitals: Temp Pulse Resp BP Pulse Ox 97.9 F 78 18 117/68 99 10/15/18 07:34 10/15/18 07:34 10/15/18 07:34 10/15/18 07:34 10/15/18 07:34 General appearance: Present: no acute distress, well-nourished - EENT Eyes: Present: PERRL ENT: hearing intact, clear oral mucosa - Neck Neck: Present: supple, normal ROM - Respiratory Respiratory effort: normal Respiratory: bilateral: CTA - Cardiovascular Heart Sounds: Present: S1 & S2. Absent: rub, click - Extremities Extremities: pulses symmetrical, No edema Peripheral Pulses: within normal limits - Abdominal General gastrointestinal: Present: soft, non-tender, non-distended, normal bowel sounds Female genitourinary: Present: normal - Integumentary Integumentary: Present: clear, warm, dry - Musculoskeletal Musculoskeletal: gait normal, strength equal bilaterally - Psychiatric Psychiatric: appropriate mood/affect, intact judgment & insight - Neurologic Neurologic: CNII-XII intact, moves all extremities Plan Activity: no restrictions Weight Bearing Status: Full Weight Bearing Diet: low cholesterol Follow up with: CANDIS CONTEH MD [Staff Physician] - 7 Days Prescriptions: amLODIPine [Norvasc] 10 mg PO DAILY #30 tablet Atenolol [Tenormin] 25 mg PO DAILY #30 tablet
[2018-10-16] MEDS ORDERED: ECOTRIN PO SCH (10:00)
== END 2018-10-15 13:50 | disposition home or self-care (01) ==
LOC: ED 22:51 → INTOOBSV 10-15 02:23 → 4A 10-15 02:23
PROVIDERS: ADMIT Internal Medicine; ATTEND Internal Medicine
DX: R07.89 Other chest pain (principal); I10 Essential (primary) hypertension; F41.1 Generalized anxiety disorder; K21.9 Gastro-esophageal reflux disease without esophagitis; M19.90 Unspecified osteoarthritis, unspecified site; J45.909 Unspecified asthma, uncomplicated; Z98.890 Other specified postprocedural states; Z79.899 Other long term (current) drug therapy
CPT/HCPCS: 36415; 71045; 80048; 80061; 83036; 84484; 85025; 93005; 93010; 99284; G0378; 96374; 99285

== ENCOUNTER 2019-01-05 06:40 | Emergency (ER) | payer MEDICARE ==
[2019-01-05 07:17] LABS: Basophils % (Auto) 0.3 % (0.0-1.8); Eosinophils % (Auto) 0.4 % (0.0-4.3); Hematocrit 40.2 % (30.3-42.9); Hemoglobin 13.1 gm/dl (10.1-14.3); Lymphocytes # (Auto) 0.9 K/mm3 (1.2-5.4); Lymphocytes % (Auto) 10.1 % (13.4-35.0); Mean Corpuscular HGB Conc 33 % (30-34); Mean Corpuscular Volume 85 fl (79-97); Monocytes # (Auto) 0.4 K/mm3 (0.0-0.8); Monocytes % (Auto) 4.8 % (0.0-7.3); Platelet Count 244 K/mm3 (140-440); Red Blood Count 4.72 M/mm3 (3.65-5.03); Red Cell Distribution Width 14.2 % (13.2-15.2)
[2019-01-05 07:35] LABS: Alanine Aminotransferase 21 units/L (7-56); Albumin 4.2 g/dL (3.9-5); BUN/Creatinine Ratio 14; Blood Urea Nitrogen 11 mg/dL (7-17); Hemolysis Index 12
[2019-01-05] MEDS ORDERED: PEPCID IV ONE (07:40)
[2019-01-05] MEDS ORDERED: ZOFRAN IV ONE (07:40)
[2019-01-05] MEDS ORDERED: MORPHINE IV ONE (07:40)
[2019-01-05] MEDS ORDERED: NACL 0.9% 1000 ML 1,000 ML IV ONE (07:42)
--- NOTE | 2019-01-05 07:46 | Emergency Department Report ---
ED Abdominal Pain HPI - General Chief Complaint: Abdominal Pain Stated Complaint: ABD PAIN VOMITTING Time Seen by Provider: 01/05/19 07:40 Source: patient Mode of arrival: Ambulatory Limitations: No Limitations - History of Present Illness Initial Comments: 63-year-old female with a past medical history arthritis, asthma, GERD, hypertension, and previous C-sections and partial hysterectomy presents to the hospital with complains of epigastric pain, nausea, vomiting, and diarrhea that started this morning. Patient has had several episodes of vomiting at home in route to the hospital and to a lesser extent diarrhea. She denies melena, hematochezia, hematemesis, fever, sick contacts, recent travel, or recent antibiotic use. She describes the epigastric pain is constant, 10/10 in intensity but fluctuates, and described a tooth ache. Pain is worse with palpation. No alleviating factors. She denies shortness of breath or diaphoresis. She does not smoke cigarettes. Brother had a massive heart attack at age 55. He denies a personal cardiac history. - Related Data Home Medications Medication Instructions Recorded Confirmed Last Taken Amitriptyline [Elavil] 25 mg PO QHS 07/17/18 10/15/18 Unknown Ibuprofen [Ibuprofen Ib 200] 200 mg PO Q4H 07/17/18 10/15/18 Unknown Multivit-Min/Iron/Folic Acid/K 1 each PO DAILY 07/17/18 10/15/18 Unknown [Centravites Adults Tablet] Omeprazole 20 mg PO QAM 07/17/18 10/15/18 Unknown PARoxetine (NF) [Paxil (Nf)] 30 mg PO DAILY 07/17/18 10/15/18 Unknown Levocetirizine Dihydrochloride 5 mg PO DAILY 10/15/18 10/15/18 Unknown Linaclotide [Linzess] 145 mcg PO QDAY 10/15/18 10/15/18 Unknown Montelukast [Singulair] 1 tab PO DAILY 10/15/18 10/15/18 Unknown Previous Rx's Medication Instructions Recorded Last Taken Type ALBUTEROL Inhaler (OR & NICU) 2 puff IH QID PRN #1 inhalation 06/17/18 Unknown Rx [ProAir HFA Inhaler] Acetaminophen [Acetaminophen TAB] 650 mg PO Q4H PRN tablet 10/15/18 Unknown Rx Aspirin EC 325 mg PO QDAY tablet 10/15/18 Unknown Rx Atenolol [Tenormin] 25 mg PO DAILY #30 tablet 10/15/18 Unknown Rx AtorvaSTATin [Lipitor] 10 mg PO QHS tablet 10/15/18 Unknown Rx Zolpidem [Ambien] 5 mg PO QHS PRN tablet 10/15/18 Unknown Rx amLODIPine [Norvasc] 10 mg PO DAILY #30 tablet 10/15/18 Unknown Rx Famotidine [Pepcid] 20 mg PO BID #20 tablet 01/05/19 Unknown Rx Ondansetron [Zofran Odt] 4 mg PO Q8HR PRN #20 tab.rapdis 01/05/19 Unknown Rx traMADol [Ultram 50 MG tab] 50 mg PO Q6HR PRN #20 tablet 01/05/19 Unknown Rx Allergies Allergy/AdvReac Type Severity Reaction Status Date / Time No Known Allergies Allergy Verified 10/15/18 00:47 ED Review of Systems ROS: Stated complaint: ABD PAIN VOMITTING Other details as noted in HPI Comment: All other systems reviewed and negative ED Past Medical Hx - Past Medical History Previous Medical History?: Yes Hx Hypertension: Yes Hx GERD: Yes Hx Arthritis: Yes Hx Asthma: Yes 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 bronchitis - Surgical History Past Surgical History?: Yes Additional Surgical History: c/s, hyst, lump from under arm, lump from hip - Social History Smoking Status: Never Smoker Substance Use Type: Alcohol, Marijuana - Medications Home Medications: Home Medications Medication Instructions Recorded Confirmed Last Taken Type ALBUTEROL Inhaler (OR & NICU) 2 puff IH QID PRN #1 inhalation 06/17/18 10/15/18 Unknown Rx [ProAir HFA Inhaler] Amitriptyline [Elavil] 25 mg PO QHS 07/17/18 10/15/18 Unknown History Ibuprofen [Ibuprofen Ib 200] 200 mg PO Q4H 07/17/18 10/15/18 Unknown History Multivit-Min/Iron/Folic Acid/K 1 each PO DAILY 07/17/18 10/15/18 Unknown History [Centravites Adults Tablet] Omeprazole 20 mg PO QAM 07/17/18 10/15/18 Unknown History PARoxetine (NF) [Paxil (Nf)] 30 mg PO DAILY 07/17/18 10/15/18 Unknown History Acetaminophen [Acetaminophen TAB] 650 mg PO Q4H PRN tablet 10/15/18 Unknown Rx Aspirin EC 325 mg PO QDAY tablet 10/15/18 Unknown Rx Atenolol [Tenormin] 25 mg PO DAILY #30 tablet 10/15/18 Unknown Rx AtorvaSTATin [Lipitor] 10 mg PO QHS tablet 10/15/18 Unknown Rx Levocetirizine Dihydrochloride 5 mg PO DAILY 10/15/18 10/15/18 Unknown History Linaclotide [Linzess] 145 mcg PO QDAY 10/15/18 10/15/18 Unknown History Montelukast [Singulair] 1 tab PO DAILY 10/15/18 10/15/18 Unknown History Zolpidem [Ambien] 5 mg PO QHS PRN tablet 10/15/18 Unknown Rx amLODIPine [Norvasc] 10 mg PO DAILY #30 tablet 10/15/18 Unknown Rx Famotidine [Pepcid] 20 mg PO BID #20 tablet 01/05/19 Unknown Rx Ondansetron [Zofran Odt] 4 mg PO Q8HR PRN #20 tab.rapdis 01/05/19 Unknown Rx traMADol [Ultram 50 MG tab] 50 mg PO Q6HR PRN #20 tablet 01/05/19 Unknown Rx ED Physical Exam - General Limitations: No Limitations - Other Other exam information: General: No limitations, patient is alert in no acute distress Head exam: Atraumatic, normocephalic Eyes exam: Normal appearance, pupils equal reactive to light, extraocular movements intact ENT: Moist mucous membrane, normal oropharynx Neck exam: Normal inspection, full range of motion, no meningismus nontender Respiratory exam: Clear to auscultation bilateral, no wheezes, rales, crackles Cardiovascular: Normal rate and rhythm, normal heart sounds Abdomen: Soft, nondistended, and epigastric tenderness, with normal bowel sounds, no rebound, or guarding. Vertical midline lower abdominal surgical scar Extremity: Full range of motion normal inspection no deformity Back: Normal Inspection, full range of motion, no tenderness Neurologic: Alert, oriented x3, cranial nerves intact, no motor or sensory deficit Psychiatric: normal affect, normal mood Skin: Warm, dry, intact ED Course Vital Signs 01/05/19 01/05/19 01/05/19 06:58 09:24 09:40 Temperature 98.0 F 98.4 F Pulse Rate 89 83 Respiratory 18 16 16 Rate Blood Pressure 139/84 Blood Pressure 120/70 [Left] O2 Sat by Pulse 100 100 100 Oximetry - Reevaluation(s) Reevaluation #1: 01/05/19 10:33 pt reports feeling better with ed tx Po challenge provided repeat ekg pending ED Medical Decision Making - Lab Data Result diagrams: 01/05/19 07:00 01/05/19 07:00 Lab Results 01/05/19 01/05/19 01/05/19 Range/Units 07:00 07:00 07:00 WBC 8.9 (4.5-11.0) K/mm3 RBC 4.72 (3.65-5.03) M/mm3 Hgb 13.1 (10.1-14.3) gm/dl Hct 40.2 (30.3-42.9) % MCV 85 (79-97) fl MCH 28 (28-32) pg MCHC 33 (30-34) % RDW 14.2 (13.2-15.2) % Plt Count 244 (140-440) K/mm3 Lymph % (Auto) 10.1 L (13.4-35.0) % [place] % (Auto) 4.8 (0.0-7.3) % Eos % (Auto) 0.4 (0.0-4.3) % Baso % (Auto) 0.3 (0.0-1.8) % Lymph # 0.9 L (1.2-5.4) K/mm3 [place] # 0.4 (0.0-0.8) K/mm3 Eos # 0.0 (0.0-0.4) K/mm3 Baso # 0.0 (0.0-0.1) K/mm3 Seg Neutrophils % 84.4 H (40.0-70.0) % Seg Neutrophils # 7.5 (1.8-7.7) K/mm3 Sodium 138 (137-145) mmol/L Potassium 3.7 (3.6-5.0) mmol/L Chloride 101.2 (98-107) mmol/L Carbon Dioxide 21 L (22-30) mmol/L Anion Gap 20 mmol/L BUN 11 (7-17) mg/dL Creatinine 0.8 (0.7-1.2) mg/dL Estimated GFR > 60 ml/min BUN/Creatinine Ratio 14 % Glucose 133 H (65-100) mg/dL Calcium 9.0 (8.4-10.2) mg/dL Total Bilirubin 0.20 (0.1-1.2) mg/dL AST 26 (5-40) units/L ALT 21 (7-56) units/L Alkaline Phosphatase 123 (35-129) units/L Troponin T < 0.010 (0.00-0.029) ng/mL Total Protein 7.7 (6.3-8.2) g/dL Albumin 4.2 (3.9-5) g/dL Albumin/Globulin Ratio 1.2 % Lipase (13-60) units/L Urine Color (Yellow) Urine Turbidity (Clear) Urine pH (5.0-7.0) Ur Specific [place] (1.003-1.030) Urine Protein (Negative) mg/dL Urine Glucose (UA) (Negative) mg/dL Urine Ketones (Negative) mg/dL Urine Blood (Negative) Urine Nitrite (Negative) Urine Bilirubin (Negative) Urine Urobilinogen (<2.0) mg/dL Ur Leukocyte Esterase (Negative) Urine WBC (Auto) (0.0-6.0) /HPF Urine RBC (Auto) (0.0-6.0) /HPF U Epithel Cells (Auto) (0-13.0) /HPF 01/05/19 01/05/19 01/05/19 Range/Units 07:00 08:37 10:01 WBC (4.5-11.0) K/mm3 RBC (3.65-5.03) M/mm3 Hgb (10.1-14.3) gm/dl Hct (30.3-42.9) % MCV (79-97) fl MCH (28-32) pg MCHC (30-34) % RDW (13.2-15.2) % Plt Count (140-440) K/mm3 Lymph % (Auto) (13.4-35.0) % [place] % (Auto) (0.0-7.3) % Eos % (Auto) (0.0-4.3) % Baso % (Auto) (0.0-1.8) % Lymph # (1.2-5.4) K/mm3 [place] # (0.0-0.8) K/mm3 Eos # (0.0-0.4) K/mm3 Baso # (0.0-0.1) K/mm3 Seg Neutrophils % (40.0-70.0) % Seg Neutrophils # (1.8-7.7) K/mm3 Sodium (137-145) mmol/L Potassium (3.6-5.0) mmol/L Chloride (98-107) mmol/L Carbon Dioxide (22-30) mmol/L Anion Gap mmol/L BUN (7-17) mg/dL Creatinine (0.7-1.2) mg/dL Estimated GFR ml/min BUN/Creatinine Ratio % Glucose (65-100) mg/dL Calcium (8.4-10.2) mg/dL Total Bilirubin (0.1-1.2) mg/dL AST (5-40) units/L ALT (7-56) units/L Alkaline Phosphatase (35-129) units/L Troponin T < 0.010 (0.00-0.029) ng/mL Total Protein (6.3-8.2) g/dL Albumin (3.9-5) g/dL Albumin/Globulin Ratio % Lipase 32 (13-60) units/L Urine Color Yellow (Yellow) Urine Turbidity Clear (Clear) Urine pH 8.0 H (5.0-7.0) Ur Specific [place] 1.009 (1.003-1.030) Urine Protein <15 mg/dl (Negative) mg/dL Urine Glucose (UA) Neg (Negative) mg/dL Urine Ketones Neg (Negative) mg/dL Urine Blood Neg (Negative) Urine Nitrite Neg (Negative) Urine Bilirubin Neg (Negative) Urine Urobilinogen < 2.0 (<2.0) mg/dL Ur Leukocyte Esterase Neg (Negative) Urine WBC (Auto) 1.0 (0.0-6.0) /HPF Urine RBC (Auto) 2.0 (0.0-6.0) /HPF U Epithel Cells (Auto) 3.0 (0-13.0) /HPF - EKG Data -: EKG Interpreted by Md EKG shows normal: sinus rhythm, axis (qrs 30), QRS complexes (qrsd 83), ST-T waves (no stemi) Rate: normal (74) - EKG Data 01/05/19 10:43 repeat ekg at 10:37, no acute finding, no stemi, or t inv - Radiology Data Radiology results: report reviewed CHEST 1 VIEW 0726 INDICATION / CLINICAL INFORMATION: Chest Pain. COMPARISON: None available. FINDINGS: SUPPORT DEVICES: None HEART / MEDIASTINUM: No significant abnormality. LUNGS / PLEURA: No areas of consolidation are seen. No obvious pleural effusions are noted. Calcified granuloma is seen in the left base. No pneumothorax. ADDITIONAL FINDINGS: No significant additional findings. IMPRESSION: No significant acute abnormality CT ABDOMEN AND PELVIS WITH CONTRAST HISTORY: n,v,d epigastric pain COMPARISON: None TECHNIQUE: Routine abdominal and pelvic CT exam performed . Lowest dose was utilized with adjustment of the MA and/or KV according to patient size. CONTRAST: 100 mL Omnipaque 300. Consent was obtained prior to the administration of contrast. No oral contrast given. FINDINGS: CT ABDOMEN: Lung Bases: Clear. Liver: All. Biliary: The gallbladder is partially contracted with a thick wall (6 mm). No evidence of cholelithiasis. Normal intrahepatic and extra hepatic bile ducts. Spleen: Normal. Pancreas: Normal. Adrenals: Wall. Kidneys: Normal. Lymphatics: No lymphadenopathy. Vasculature: No significant abnormality. Bowel/Peritoneum: Nonobstructive bowel pattern. Diverticulosis without mesocolonic fat stranding. No free air. No free fluid. Normal appendix. CT PELVIC: : Status post hysterectomy. Normal ovaries. Osseous Structures: No significant abnormality. Additional Findings: Normal rectum and sigmoid colon. IMPRESSION: 1. Nonspecific bilateral wall thickening with no evidence of cholelithiasis. 2. Normal appendix and no signs of acute or chronic pancreatitis. 3. Mild diverticulosis but no diverticulitis. 4. Status post hysterectomy. - Medical Decision Making pt feeling better ED treatment Tolerating by mouth intake Discharge was symptomatic treatment Cardiac workup unremarkable with normal EKG without STEMI 2 and troponin negative 2. Patient denies chest pain and pain with isolated epigastric area. - Differential Diagnosis PUD, gastroenteritis, biliary colic, obstruction Critical Care Time: No Critical care attestation.: If time is entered above; I have spent that time in minutes in the direct care of this critically ill patient, excluding procedure time. ED Disposition Clinical Impression: Gastroenteritis Disposition: DC-01 TO HOME OR SELFCARE Is pt being admited?: No Does the pt Need Aspirin: No Condition: Stable Instructions: Gastroenteritis (ED) Additional Instructions: Take the medication as prescribed. Follow up with your doctor or the clinic/doctor provided. Return if symptoms worsen as indicated by your dis charge instructions Prescriptions: Famotidine [Pepcid] 20 mg PO BID #20 tablet traMADol [Ultram 50 MG tab] 50 mg PO Q6HR PRN #20 tablet PRN Reason: Pain Ondansetron [Zofran Odt] 4 mg PO Q8HR PRN #20 tab.rapdis PRN Reason: Nausea And Vomiting Referrals: STAR BERNABE MD [Primary Care Provider] - 3-5 Days [facility] [Provider Group] - 3-5 Days Time of Disposition: 11:10
--- NOTE | 2019-01-05 08:08 | XRay Report ---
CHEST 1 VIEW 0726 INDICATION / CLINICAL INFORMATION: Chest Pain. COMPARISON: None available. FINDINGS: SUPPORT DEVICES: None HEART / MEDIASTINUM: No significant abnormality. LUNGS / PLEURA: No areas of consolidation are seen. No obvious pleural effusions are noted. Calcified granuloma is seen in the left base. No pneumothorax. ADDITIONAL FINDINGS: No significant additional findings. IMPRESSION: No significant acute abnormality Signer Name: Jaun Garza MD Signed: 01/05/2019 8:04 AM Workstation Name: [id number]
[2019-01-05 09:26] LABS: Bilirubin,Urine NEG (Negative); Blood,Urine NEG (Negative); Color,Urine Yellow (Yellow); Protein,Urine <15 mg/dL mg/dL (Negative); Urobilinogen,Urine < 2.0 mg/dL (<2.0)
[2019-01-05 09:41] VITALS: BP 120/70
--- NOTE | 2019-01-05 09:49 | Cat Scan Report ---
CT ABDOMEN AND PELVIS WITH CONTRAST HISTORY: n,v,d epigastric pain COMPARISON: None TECHNIQUE: Routine abdominal and pelvic CT exam performed . Lowest dose was utilized with adjustment of the MA and/or KV according to patient size. CONTRAST: 100 mL Omnipaque 300. Consent was obtained prior to the administration of contrast. No oral contrast given. FINDINGS: CT ABDOMEN: Lung Bases: Clear. Liver: All. Biliary: The gallbladder is partially contracted with a thick wall (6 mm). No evidence of cholelithia sis. Normal intrahepatic and extra hepatic bile ducts. Spleen: Normal. Pancreas: Normal. Adrenals: Wall. Kidneys: Normal. Lymphatics: No lymphadenopathy. Vasculature: No significant abnormality. Bowel/Peritoneum: Nonobstructive bowel pattern. Diverticulosis without mesocolonic fat stranding. No free air. No free fluid. Normal appendix. CT PELVIC: : Status post hysterectomy. Normal ovaries. Osseous Structures: No significant abnormality. Additional Findings: Normal rectum and sigmoid colon. IMPRESSION: 1. Nonspecific bilateral wall thickening with no evidence of cholelithiasis. 2. Normal appendix and no signs of acute or chronic pancreatitis. 3. Mild diverticulosis but no diverticulitis. 4. Status post hysterectomy. Signer Name: Forrest Obando MD Signed: 01/05/2019 9:44 AM Workstation Name: [id number]
== END 2019-01-05 11:30 | disposition home or self-care (01) ==
LOC: ED 06:40
DX: K52.9 Noninfective gastroenteritis and colitis, unspecified (principal); I10 Essential (primary) hypertension; K21.9 Gastro-esophageal reflux disease without esophagitis; M19.90 Unspecified osteoarthritis, unspecified site; J45.909 Unspecified asthma, uncomplicated; F12.10 Cannabis abuse, uncomplicated; Z90.710 Acquired absence of both cervix and uterus; Z79.899 Other long term (current) drug therapy
CPT/HCPCS: 36415; 71045; 74177; 80053; 81001; 83690; 84484; 85025; 93005; 93010; 96361; 96374; 96375; 99285; J2270; J2405; J7030; Q9967

== ENCOUNTER 2019-02-05 23:57 | Emergency (ER) | payer MEDICARE ==
[2019-02-06 00:37] LABS: Basophils # (Auto) 0.1 K/mm3 (0.0-0.1); Basophils % (Auto) 0.6 % (0.0-1.8); Eosinophils % (Auto) 0.2 % (0.0-4.3); Hematocrit 38.8 % (30.3-42.9); Hemoglobin 12.7 gm/dl (10.1-14.3); Lymphocytes # (Auto) 1.6 K/mm3 (1.2-5.4); Lymphocytes % (Auto) 11.6 % (13.4-35.0); Mean Corpuscular HGB Conc 33 % (30-34); Mean Corpuscular Volume 85 fl (79-97); Monocytes # (Auto) 0.8 K/mm3 (0.0-0.8); Monocytes % (Auto) 5.9 % (0.0-7.3); Platelet Count 259 K/mm3 (140-440); Red Blood Count 4.58 M/mm3 (3.65-5.03)
[2019-02-06 00:51] LABS: Alanine Aminotransferase 19 units/L (7-56); Albumin 4.4 g/dL (3.9-5); BUN/Creatinine Ratio 17; Blood Urea Nitrogen 15 mg/dL (7-17); Calcium 9.9 mg/dL (8.4-10.2); Hemolysis Index 10
[2019-02-06] MEDS ORDERED: NACL 0.9% 1000 ML 1,000 ML IV ONE (01:01)
[2019-02-06] MEDS ORDERED: MORPHINE IV ONE (01:01)
[2019-02-06] MEDS ORDERED: ZOFRAN IV ONE (01:01)
--- NOTE | 2019-02-06 01:06 | Emergency Department Report ---
ED Abdominal Pain HPI - General Chief Complaint: Abdominal Pain Stated Complaint: ABD PAIN Time Seen by Provider: 02/06/19 00:56 Source: patient Mode of arrival: Ambulatory Limitations: No Limitations - History of Present Illness Initial Comments: Mrs. Pabon is a 63-year-old female with a history of hypertension, anxiety disorder and "stomach allergies" who presents with left lower quadrant severe abdominal pain. She had also nausea vomiting. Last bowel movement occurred on yesterday. She ate [employer] and peach cobbler tonight for dinner. Pain began this evening. Past surgical history, and hysterectomy. MD Complaint: abdominal pain -: Gradual Location: LLQ Radiation: none Migration to: no migration Severity: severe Severity scale (0 -10): 8 Quality: cramping Consistency: constant Improves With: nothing Worsens With: nothing Associated Symptoms: nausea, vomiting - Related Data Home Medications Medication Instructions Recorded Confirmed Last Taken Amitriptyline [Elavil] 25 mg PO QHS 07/17/18 10/15/18 Unknown Ibuprofen [Ibuprofen Ib 200] 200 mg PO Q4H 07/17/18 10/15/18 Unknown Multivit-Min/Iron/Folic Acid/K 1 each PO DAILY 07/17/18 10/15/18 Unknown [Centravites Adults Tablet] Omeprazole 20 mg PO QAM 07/17/18 10/15/18 Unknown PARoxetine (NF) [Paxil (Nf)] 30 mg PO DAILY 07/17/18 10/15/18 Unknown Levocetirizine Dihydrochloride 5 mg PO DAILY 10/15/18 10/15/18 Unknown Linaclotide [Linzess] 145 mcg PO QDAY 10/15/18 10/15/18 Unknown Montelukast [Singulair] 1 tab PO DAILY 10/15/18 10/15/18 Unknown Previous Rx's Medication Instructions Recorded Last Taken Type ALBUTEROL Inhaler (OR & NICU) 2 puff IH QID PRN #1 inhalation 06/17/18 Unknown Rx [ProAir HFA Inhaler] Acetaminophen [Acetaminophen TAB] 650 mg PO Q4H PRN tablet 10/15/18 Unknown Rx Aspirin EC 325 mg PO QDAY tablet 10/15/18 Unknown Rx Atenolol [Tenormin] 25 mg PO DAILY #30 tablet 10/15/18 Unknown Rx AtorvaSTATin [Lipitor] 10 mg PO QHS tablet 10/15/18 Unknown Rx Zolpidem [Ambien] 5 mg PO QHS PRN tablet 10/15/18 Unknown Rx amLODIPine [Norvasc] 10 mg PO DAILY #30 tablet 10/15/18 Unknown Rx Famotidine [Pepcid] 20 mg PO BID #20 tablet 01/05/19 Unknown Rx Ondansetron [Zofran Odt] 4 mg PO Q8HR PRN #20 tab.rapdis 01/05/19 Unknown Rx traMADol [Ultram 50 MG tab] 50 mg PO Q6HR PRN #20 tablet 01/05/19 Unknown Rx Docusate Sodium [Colace] 100 mg PO BID 10 Days #20 capsule 02/06/19 Unknown Rx HYDROcodone/APAP 5-325 [[place] 1 each PO Q6HR PRN #10 tablet 02/06/19 Unknown Rx 5/325] Allergies Allergy/AdvReac Type Severity Reaction Status Date / Time No Known Allergies Allergy Verified 10/15/18 00:47 ED Review of Systems ROS: Stated complaint: ABD PAIN Other details as noted in HPI Comment: All other systems reviewed and negative Constitutional: denies: fever, malaise Respiratory: denies: cough Cardiovascular: denies: chest pain Gastrointestinal: abdominal pain, nausea, vomiting ED Past Medical Hx - Past Medical History Previous Medical History?: Yes Hx Hypertension: Yes Hx GERD: Yes Hx Arthritis: Yes Hx Asthma: Yes 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 bronchitis - Surgical History Past Surgical History?: Yes Additional Surgical History: c/s, hyst, lump from under arm, lump from hip - Social History Smoking Status: Never Smoker Substance Use Type: None, Marijuana - Medications Home Medications: Home Medications Medication Instructions Recorded Confirmed Last Taken Type ALBUTEROL Inhaler (OR & NICU) 2 puff IH QID PRN #1 inhalation 06/17/18 10/15/18 Unknown Rx [ProAir HFA Inhaler] Amitriptyline [Elavil] 25 mg PO QHS 07/17/18 10/15/18 Unknown History Ibuprofen [Ibuprofen Ib 200] 200 mg PO Q4H 07/17/18 10/15/18 Unknown History Multivit-Min/Iron/Folic Acid/K 1 each PO DAILY 07/17/18 10/15/18 Unknown History [Centravites Adults Tablet] Omeprazole 20 mg PO QAM 07/17/18 10/15/18 Unknown History PARoxetine (NF) [Paxil (Nf)] 30 mg PO DAILY 07/17/18 10/15/18 Unknown History Acetaminophen [Acetaminophen TAB] 650 mg PO Q4H PRN tablet 10/15/18 Unknown Rx Aspirin EC 325 mg PO QDAY tablet 10/15/18 Unknown Rx Atenolol [Tenormin] 25 mg PO DAILY #30 tablet 10/15/18 Unknown Rx AtorvaSTATin [Lipitor] 10 mg PO QHS tablet 10/15/18 Unknown Rx Levocetirizine Dihydrochloride 5 mg PO DAILY 10/15/18 10/15/18 Unknown History Linaclotide [Linzess] 145 mcg PO QDAY 10/15/18 10/15/18 Unknown History Montelukast [Singulair] 1 tab PO DAILY 10/15/18 10/15/18 Unknown History Zolpidem [Ambien] 5 mg PO QHS PRN tablet 10/15/18 Unknown Rx amLODIPine [Norvasc] 10 mg PO DAILY #30 tablet 10/15/18 Unknown Rx Famotidine [Pepcid] 20 mg PO BID #20 tablet 01/05/19 Unknown Rx Ondansetron [Zofran Odt] 4 mg PO Q8HR PRN #20 tab.rapdis 01/05/19 Unknown Rx traMADol [Ultram 50 MG tab] 50 mg PO Q6HR PRN #20 tablet 01/05/19 Unknown Rx Docusate Sodium [Colace] 100 mg PO BID 10 Days #20 capsule 02/06/19 Unknown Rx HYDROcodone/APAP 5-325 [[place] 1 each PO Q6HR PRN #10 tablet 02/06/19 Unknown Rx 5/325] ED Physical Exam - General Limitations: No Limitations General appearance: alert, other (appears in pain appears uncomfortable) - Head Head exam: Present: atraumatic, normocephalic - Eye Eye exam: Present: normal appearance - ENT ENT exam: Present: mucous membranes moist - Neck Neck exam: Present: normal inspection - Respiratory Respiratory exam: Present: normal lung sounds bilaterally. Absent: respiratory distress, wheezes, rales, rhonchi - Cardiovascular Cardiovascular Exam: Present: regular rate, normal rhythm, normal heart sounds. Absent: systolic murmur, diastolic murmur, rubs, gallop - GI/Abdominal GI/Abdominal exam: Present: soft, distended, tenderness, guarding, diminished bowel sounds, other (vertical surgical scar lower abdomen central). Absent: rebound - Extremities Exam Extremities exam: Present: normal inspection - Neurological Exam Neurological exam: Present: alert, oriented X3 - Psychiatric Psychiatric exam: Present: normal affect, normal mood - Skin Skin exam: Present: warm, dry, intact, normal color. Absent: rash ED Course Vital Signs 02/06/19 02/06/19 02/06/19 00:11 01:18 02:00 Temperature 97.5 F L 97.7 F Pulse Rate 71 100 H 86 Respiratory 22 24 29 H Rate Blood Pressure 147/78 166/84 Blood Pressure 147/69 [Left] O2 Sat by Pulse 98 100 100 Oximetry 02/06/19 03:30 Temperature Pulse Rate 100 H Respiratory 22 Rate Blood Pressure 143/81 Blood Pressure [Left] O2 Sat by Pulse 100 Oximetry ED Medical Decision Making - Lab Data Result diagrams: 02/06/19 00:21 02/06/19 00:21 Laboratory Results - last 24 hr 02/06/19 02/06/19 00:21 00:21 WBC 13.6 H RBC 4.58 Hgb 12.7 Hct 38.8 MCV 85 MCH 28 MCHC 33 RDW 14.0 Plt Count 259 Lymph % (Auto) 11.6 L [place] % (Auto) 5.9 Eos % (Auto) 0.2 Baso % (Auto) 0.6 Lymph # 1.6 [place] # 0.8 Eos # 0.0 Baso # 0.1 Seg Neutrophils % 81.7 H Seg Neutrophils # 11.1 H Sodium 142 Potassium 3.2 L Chloride 100.4 Carbon Dioxide 22 Anion Gap 23 BUN 15 Creatinine 0.9 Estimated GFR > 60 BUN/Creatinine Ratio 17 Glucose 167 H Calcium 9.9 Total Bilirubin < 0.20 AST 22 ALT 19 Alkaline Phosphatase 103 Total Protein 7.3 Albumin 4.4 Albumin/Globulin Ratio 1.5 Lipase 29 - Radiology Data Radiology results: report reviewed CT A/P: no acute process, persistent gallbladder wall thickening - Medical Decision Making Mrs. Kahn presents with recurrent abdominal pain for several years. Worse today. Left sided predominantly. CT reveals persistently thickened gallbladder wall, without tenderness, unclear etiology. ?chronic cholecystitis ?malignancy I have referred patient to general surgery and outpatient physician. rx: norco, colace dc'd home Critical care attestation.: If time is entered above; I have spent that time in minutes in the direct care of this critically ill patient, excluding procedure time. ED Disposition Clinical Impression: Abdominal pain, Gallbladder disease Disposition: TO HOME OR SELFCARE Is pt being admited?: No Does the pt Need Aspirin: No Condition: Stable Instructions: Abdominal Pain (ED) Additional Instructions: Please take your CT report to your new physician. Please see surgeon as advised. Prescriptions: Docusate Sodium [Colace] 100 mg PO BID 10 Days #20 capsule HYDROcodone/APAP 5-325 [[place] 5/325] 1 each PO Q6HR PRN #10 tablet PRN Reason: Pain Referrals: CANDIS CONTEH MD [Staff Physician] - 3-5 Days BRITANY SCOTT MD [Staff Physician] - 3-5 Days
[2019-02-06 02:15] LABS: Bilirubin,Urine NEG (Negative); Blood,Urine NEG (Negative); Color,Urine Yellow (Yellow); Mucus,Urine FEW /HPF; Protein,Urine <15 mg/dL mg/dL (Negative); Urobilinogen,Urine < 2.0 mg/dL (<2.0)
--- NOTE | 2019-02-06 03:46 | Cat Scan Report ---
CT abdomen pelvis w con INDICATION: Left upper quadrant pain.. TECHNIQUE: All CT scans at this location are performed using the following dose modulation technique: Automated exposure control. CONTRAST: Omnipaque 300, 100 cc IV injection. Oral contrast material. COMPARISON: 01/05/2019. CT ABDOMEN: The parenchymal organs are unremarkable in appearance other than right renal scarring. Ne gative for abdominal mass or fluid collection. The bowel is not dilated or thickened. Incidentally no gregg is a gastric diverticulum. Diffuse gallbladder thickening remains. CT PELVIS: Negative for distal ureteral stone, pelvic fluid collection or inflammation. Status post p revious hysterectomy. The appendix is normal. IMPRESSION: 1. Persistent diffuse gallbladder wall thickening. 2. Negative for bowel obstruction. Signer Name: Dayne Gill MD Signed: 02/06/2019 3:41 AM Workstation Name: [id number]
[2019-02-06 04:48] VITALS: BP 166/84
== END 2019-02-06 04:30 | disposition home or self-care (01) ==
LOC: ED 23:57
DX: K82.9 Disease of gallbladder, unspecified (principal); I10 Essential (primary) hypertension; K21.9 Gastro-esophageal reflux disease without esophagitis; M19.90 Unspecified osteoarthritis, unspecified site; F12.10 Cannabis abuse, uncomplicated; Z79.899 Other long term (current) drug therapy
CPT/HCPCS: 36415; 74177; 80053; 81001; 83690; 85025; 96361; 96374; 96375; 99284; J2270; J2405; J7030; Q9963; Q9967

== ENCOUNTER 2019-04-29 15:10 | Outpatient (CLI) | payer MEDICARE ==
--- NOTE | 2019-04-29 16:16 | XRay Report ---
BILATERAL HAND 3 VIEW(S) INDICATION / CLINICAL INFORMATION: 716.50 POLYARTHRITIS COMPARISON: None available. FINDINGS: No acute fracture or subluxation. Mild joint space narrowing and small osteophytes are seen at some o f the interphalangeal joints and at the thumb MCP joints. No soft tissue nodules or swelling, erosion s, juxta-articular osteopenia, or other evidence of an inflammatory arthropathy is seen. Signer Name: Jame Tran MD Signed: 04/29/2019 4:11 PM Workstation Name: [id number]
--- NOTE | 2019-04-29 16:29 | XRay Report ---
RIGHT WRIST 2 VIEWS INDICATION / CLINICAL INFORMATION: POLYARTHRITIS COMPARISON: None available. FINDINGS: BONES / JOINT(S): No acute fracture or subluxation. No significant arthritis. SOFT TISSUES: No significant abnormality. ADDITIONAL FINDINGS: None. LEFT WRIST 2 VIEWS INDICATION / CLINICAL INFORMATION: POLYARTHRITIS COMPARISON: None available. FINDINGS: BONES / JOINT(S): No acute fracture or subluxation. No significant arthritis. SOFT TISSUES: No significant abnormality. ADDITIONAL FINDINGS: None. Signer Name: Holger Hutson MD Signed: 04/29/2019 4:25 PM Workstation Name: [id number]
== END 2019-04-29 15:11 | disposition home or self-care (01) ==
LOC: XRAY 15:10
PROVIDERS: ATTEND Internal Medicine
DX: M25.741 Osteophyte, right hand (principal); M25.742 Osteophyte, left hand; M13.0 Polyarthritis, unspecified; I10 Essential (primary) hypertension; K21.9 Gastro-esophageal reflux disease without esophagitis; Z90.710 Acquired absence of both cervix and uterus

== ENCOUNTER 2019-06-20 15:16 | Emergency (ER) | payer MEDICARE ==
[2019-06-20 15:25] VITALS: BP 152/81
--- NOTE | 2019-06-20 15:33 | Event Note ---
ED Screening Note Date of service: 06/20/19 Time: 15:31 ED Screening Note: Pt complains of N/V/D x 3 am states ate at [employer] and believes she has food poisoning +epigastric abdominal pain hx of GERD This initial assessment/diagnostic orders/clinical plan/treatment(s) is/are subject to change based on patients health status, clinical progression and re- assessment by fellow clinical providers in the ED. Further treatment and workup at subsequent clinical providers discretion. Patient/guardian urged not to elope from the ED as their condition may be serious if not clinically assessed and managed. Initial orders include: labs
[2019-06-20 16:59] LABS: Basophils % (Auto) 0.4 % (0.0-1.8); Hematocrit 36.8 % (30.3-42.9); Hemoglobin 12.2 gm/dl (10.1-14.3); Lymphocytes # (Auto) 0.7 K/mm3 (1.2-5.4); Lymphocytes % (Auto) 9.1 % (13.4-35.0); Mean Corpuscular HGB Conc 33 % (30-34); Mean Corpuscular Volume 83 fl (79-97); Monocytes # (Auto) 0.3 K/mm3 (0.0-0.8); Monocytes % (Auto) 4.4 % (0.0-7.3); Platelet Count 220 K/mm3 (140-440); Red Blood Count 4.43 M/mm3 (3.65-5.03)
[2019-06-20 17:10] LABS: Bilirubin,Urine NEG (Negative); Blood,Urine NEG (Negative); Color,Urine Yellow (Yellow); Mucus,Urine FEW /HPF; Protein,Urine <15 mg/dL mg/dL (Negative); Urobilinogen,Urine < 2.0 mg/dL (<2.0)
[2019-06-20 17:26] LABS: Alanine Aminotransferase 14 units/L (7-56); Albumin 4.5 g/dL (3.9-5); BUN/Creatinine Ratio 13; Blood Urea Nitrogen 8 mg/dL (7-17); Calcium 9.5 mg/dL (8.4-10.2); Hemolysis Index 18
== END 2019-06-20 23:34 | disposition left against medical advice (07) ==
LOC: ED 15:16
DX: R11.2 Nausea with vomiting, unspecified (principal); Z53.21 Procedure and treatment not carried out due to patient leaving prior to being seen by health care provider
CPT/HCPCS: 36415; 80053; 81001; 83690; 85025

== ENCOUNTER 2019-09-28 01:44 | Emergency (ER) | payer MEDICARE ==
--- NOTE | 2019-09-28 02:52 | XRay Report ---
CHEST 1 VIEW 09/28/2019 2:24 AM INDICATION / CLINICAL INFORMATION: Chest Pain. COMPARISON: 01/05/19 FINDINGS: SUPPORT DEVICES: None. HEART / MEDIASTINUM: No significant abnormality. LUNGS / PLEURA: No significant pulmonary or pleural abnormality. Minimal left lung base scar versus a telectasis. ADDITIONAL FINDINGS: No significant additional findings. IMPRESSION: 1. No acute findings. Signer Name: Manisha Mukherjee MD Signed: 09/28/2019 2:48 AM Workstation Name: [email or web address]
[2019-09-28 02:56] LABS: Basophils % (Auto) 0.6 % (0.0-1.8); Eosinophils # (Auto) 0.1 K/mm3 (0.0-0.4); Eosinophils % (Auto) 1.7 % (0.0-4.3); Hemoglobin 11.4 gm/dl (10.1-14.3); Lymphocytes # (Auto) 1.3 K/mm3 (1.2-5.4); Lymphocytes % (Auto) 27.1 % (13.4-35.0); Mean Corpuscular HGB Conc 33 % (30-34); Mean Corpuscular Volume 84 fl (79-97); Monocytes # (Auto) 0.4 K/mm3 (0.0-0.8); Monocytes % (Auto) 8.5 % (0.0-7.3); Platelet Count 198 K/mm3 (140-440); Red Blood Count 4.19 M/mm3 (3.65-5.03); Red Cell Distribution Width 14.5 % (13.2-15.2)
[2019-09-28 03:14] LABS: BUN/Creatinine Ratio 20; Blood Urea Nitrogen 14 mg/dL (7-17); Calcium 8.9 mg/dL (8.4-10.2); Hemolysis Index 3
--- NOTE | 2019-09-28 04:22 | Emergency Department Report ---
ED Chest Pain HPI - General Chief Complaint: Chest Pain Stated Complaint: CHEST PAIN Time Seen by Provider: 09/28/19 02:14 Source: patient, EMS Mode of arrival: Stretcher Limitations: No Limitations - History of Present Illness Initial Comments: 64-year-old female presents to ED with chest pain x1 day. Patient states the pain initially began 9:00 AM yesterday morning, states it was intermittent throughout the day and then became constant at 9 PM. Patient states she took Tylenol which would relieve the pain for a couple of hours. Patient then decided to call EMS and come to the ER. Patient states pain felt like pressure of the center of her chest, with pain radiating into her left arm. Patient denies nausea, vomiting, diaphoresis. She also denies cough, fever, shortness of breath, and also denies contact with anyone who was tested positive for COVID- 19. MD Complaint: chest pain -: days(s) (1) Onset: during rest Pain Location: substernal Pain Radiation: LUE Severity: moderate Severity scale (0 -10): 6 Quality: heaviness Consistency: constant Improves With: other (tylenol) re: denies: nausea, vomting, diaphoresis, dyspnea Other Symptoms: denies: cough, fever, leg swelling Treatments Prior to Arrival: aspirin - Related Data Home Medications Medication Instructions Recorded Confirmed Last Taken Amitriptyline [Elavil] 25 mg PO QHS 07/17/18 10/15/18 Unknown Ibuprofen [Ibuprofen Ib 200] 200 mg PO Q4H 07/17/18 10/15/18 Unknown Multivit-Min/Iron/Folic Acid/K 1 each PO DAILY 07/17/18 10/15/18 Unknown [Centravites Adults Tablet] Omeprazole 20 mg PO QAM 07/17/18 10/15/18 Unknown PARoxetine (NF) [Paxil (Nf)] 30 mg PO DAILY 07/17/18 10/15/18 Unknown Levocetirizine Dihydrochloride 5 mg PO DAILY 10/15/18 10/15/18 Unknown Linaclotide [Linzess] 145 mcg PO QDAY 10/15/18 10/15/18 Unknown Montelukast [Singulair] 1 tab PO DAILY 10/15/18 10/15/18 Unknown Previous Rx's Medication Instructions Recorded Last Taken Type Albuterol INH(or & Nicu Only) 2 puff IH QID PRN #1 inhalation 06/17/18 Unknown Rx [ProAir HFA Inhaler] Acetaminophen [Acetaminophen TAB] 650 mg PO Q4H PRN tablet 10/15/18 Unknown Rx Aspirin EC [Ecotrin] 325 mg PO QDAY tablet 10/15/18 Unknown Rx AtorvaSTATin 10 mg PO QHS tablet 10/15/18 Unknown Rx Zolpidem [Ambien] 5 mg PO QHS PRN tablet 10/15/18 Unknown Rx amLODIPine 10 mg PO DAILY #30 tablet 10/15/18 Unknown Rx atenoloL [Tenormin] 25 mg PO DAILY #30 tablet 10/15/18 Unknown Rx Famotidine [Pepcid] 20 mg PO BID #20 tablet 01/05/19 Unknown Rx Ondansetron [Zofran Odt] 4 mg PO Q8HR PRN #20 tab.rapdis 01/05/19 Unknown Rx traMADoL [Ultram 50 MG tab] 50 mg PO Q6HR PRN #20 tablet 01/05/19 Unknown Rx Docusate Sodium [Colace] 100 mg PO BID 10 Days #20 capsule 02/06/19 Unknown Rx HYDROcodone/APAP 5-325 [[place] 1 each PO Q6HR PRN #10 tablet 02/06/19 Unknown Rx 5/325] Allergies Allergy/AdvReac Type Severity Reaction Status Date / Time No Known Allergies Allergy Verified 10/15/18 00:47 ED Review of Systems ROS: Stated complaint: CHEST PAIN Other details as noted in HPI Comment: All other systems reviewed and negative Constitutional: denies: fever Respiratory: denies: cough, shortness of breath Cardiovascular: chest pain Gastrointestinal: denies: nausea, vomiting Musculoskeletal: other (Denies leg pain and swelling) ED Past Medical Hx - Past Medical History Previous Medical History?: Yes Hx Hypertension: Yes Hx GERD: Yes Hx Arthritis: Yes Hx Asthma: Yes 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 bronchitis - Surgical History Past Surgical History?: Yes Hx Cholecystectomy: Yes Additional Surgical History: c/s, hyst, lump from under arm, lump from hip - Social History Smoking Status: Never Smoker - Medications Home Medications: Home Medications Medication Instructions Recorded Confirmed Last Taken Type Albuterol INH(or & Nicu Only) 2 puff IH QID PRN #1 inhalation 06/17/18 10/15/18 Unknown Rx [ProAir HFA Inhaler] Amitriptyline [Elavil] 25 mg PO QHS 07/17/18 10/15/18 Unknown History Ibuprofen [Ibuprofen Ib 200] 200 mg PO Q4H 07/17/18 10/15/18 Unknown History Multivit-Min/Iron/Folic Acid/K 1 each PO DAILY 07/17/18 10/15/18 Unknown History [Centravites Adults Tablet] Omeprazole 20 mg PO QAM 07/17/18 10/15/18 Unknown History PARoxetine (NF) [Paxil (Nf)] 30 mg PO DAILY 07/17/18 10/15/18 Unknown History Acetaminophen [Acetaminophen TAB] 650 mg PO Q4H PRN tablet 10/15/18 Unknown Rx Aspirin EC [Ecotrin] 325 mg PO QDAY tablet 10/15/18 Unknown Rx AtorvaSTATin 10 mg PO QHS tablet 10/15/18 Unknown Rx Levocetirizine Dihydrochloride 5 mg PO DAILY 10/15/18 10/15/18 Unknown History Linaclotide [Linzess] 145 mcg PO QDAY 10/15/18 10/15/18 Unknown History Montelukast [Singulair] 1 tab PO DAILY 10/15/18 10/15/18 Unknown History Zolpidem [Ambien] 5 mg PO QHS PRN tablet 10/15/18 Unknown Rx amLODIPine 10 mg PO DAILY #30 tablet 10/15/18 Unknown Rx atenoloL [Tenormin] 25 mg PO DAILY #30 tablet 10/15/18 Unknown Rx Famotidine [Pepcid] 20 mg PO BID #20 tablet 01/05/19 Unknown Rx Ondansetron [Zofran Odt] 4 mg PO Q8HR PRN #20 tab.rapdis 01/05/19 Unknown Rx traMADoL [Ultram 50 MG tab] 50 mg PO Q6HR PRN #20 tablet 01/05/19 Unknown Rx Docusate Sodium [Colace] 100 mg PO BID 10 Days #20 capsule 02/06/19 Unknown Rx HYDROcodone/APAP 5-325 [[place] 1 each PO Q6HR PRN #10 tablet 02/06/19 Unknown Rx 5/325] ED Physical Exam - General Limitations: No Limitations General appearance: alert, in no apparent distress - Head Head exam: Present: atraumatic, normocephalic - Eye Eye exam: Present: normal appearance, EOMI - ENT ENT exam: Present: mucous membranes moist - Neck Neck exam: Present: normal inspection - Respiratory Respiratory exam: Present: normal lung sounds bilaterally. Absent: respiratory distress - Cardiovascular Cardiovascular Exam: Present: regular rate, normal rhythm - GI/Abdominal GI/Abdominal exam: Present: soft. Absent: distended, tenderness - Extremities Exam Extremities exam: Present: normal inspection. Absent: pedal edema, calf tenderness - Neurological Exam Neurological exam: Present: alert, oriented X3 - Psychiatric Psychiatric exam: Present: normal affect, normal mood - Skin Skin exam: Present: warm, dry, intact, normal color ED Course Vital Signs 09/28/19 09/28/19 09/28/19 02:09 02:11 02:30 Temperature 98.2 F Pulse Rate 70 69 Respiratory 16 16 16 Rate Blood Pressure Blood Pressure 144/73 140/71 [Left] O2 Sat by Pulse 97 97 96 Oximetry 09/28/19 09/28/19 03:30 05:45 Temperature Pulse Rate 64 72 Respiratory 18 17 Rate Blood Pressure 125/71 Blood Pressure 118/69 [Left] O2 Sat by Pulse 97 99 Oximetry ED Medical Decision Making - Lab Data Result diagrams: 09/28/19 02:37 09/28/19 02:37 - EKG Data -: EKG Interpreted by Ut EKG shows normal: sinus rhythm, axis, intervals, QRS complexes, ST-T waves Rate: normal - EKG Data Interpretation: no acute changes - Radiology Data Radiology results: report reviewed, image reviewed - Medical Decision Making Previous discharge summary from October 2018 following chest pain admission stated that patient had had 3 normal stress tests prior to that admission. Her chest pain was thought to be atypical possibly due to anxiety. Patient states the pain that she is experiencing currently feels exactly the same as the pain that from last year. Critical care attestation.: If time is entered above; I have spent that time in minutes in the direct care of this critically ill patient, excluding procedure time. ED Disposition Clinical Impression: Chest pain Disposition: - TO HOME OR SELFCARE Is pt being admited?: No Condition: Stable Instructions: Chest Pain (ED) Referrals: PRIMARY CARE, [Referring] - 3-5 Days Time of Disposition: 06:01
[2019-09-28 06:02] VITALS: BP 142/76
== END 2019-09-28 06:23 | disposition home or self-care (01) ==
LOC: ED 01:44
DX: R07.89 Other chest pain (principal); M79.602 Pain in left arm; I10 Essential (primary) hypertension; K21.9 Gastro-esophageal reflux disease without esophagitis; M19.91 Primary osteoarthritis, unspecified site; J45.909 Unspecified asthma, uncomplicated; Z79.1 Long term (current) use of non-steroidal anti-inflammatories (NSAID); Z79.899 Other long term (current) drug therapy; Z98.890 Other specified postprocedural states; Z90.49 Acquired absence of other specified parts of digestive tract
CPT/HCPCS: 36415; 71045; 80048; 84484; 85025; 93005; 93010

== ENCOUNTER 2020-03-27 21:55 | Emergency (ER) | payer MEDICARE ==
--- NOTE | 2020-03-27 22:44 | XRay Report ---
CHEST PA AND LATERAL VIEWS INDICATION: Chest Pain. COMPARISON: 12/23/2019 FINDINGS: Support devices: None. Heart: Within normal limits. Lungs/Pleura: No acute pulmonary or pleural findings. IMPRESSION: 1. No acute findings. Signer Name: Ken Mahoney MD Signed: 03/27/2020 10:40 PM Workstation Name: [id number]
[2020-03-27 23:12] LABS: Basophils % (Auto) 0.8 % (0.0-1.8); Eosinophils % (Auto) 0.9 % (0.0-4.3); Hematocrit 37.8 % (30.3-42.9); Hemoglobin 12.2 gm/dl (10.1-14.3); Lymphocytes # (Auto) 1.7 K/mm3 (1.2-5.4); Lymphocytes % (Auto) 34.6 % (13.4-35.0); Mean Corpuscular HGB Conc 32 % (30-34); Mean Corpuscular Volume 86 fl (79-97); Monocytes # (Auto) 0.4 K/mm3 (0.0-0.8); Monocytes % (Auto) 8.7 % (0.0-7.3); Platelet Count 228 K/mm3 (140-440); Red Blood Count 4.43 M/mm3 (3.65-5.03); Red Cell Distribution Width 14.8 % (13.2-15.2)
[2020-03-27 23:17] LABS: BUN/Creatinine Ratio 17; Blood Urea Nitrogen 17 mg/dL (7-17); Calcium 9.3 mg/dL (8.4-10.2); Hemolysis Index 90
[2020-03-28 01:01] VITALS: BP 132/71
--- NOTE | 2020-03-28 01:08 | Emergency Department Report ---
ED Shortness of Breath HPI - General Chief Complaint: Dyspnea/Respdistress Stated Complaint: ASTHMA Time Seen by Provider: 03/28/20 00:45 Source: patient Mode of arrival: Ambulatory Limitations: No Limitations - History of Present Illness Initial Comments: Patient is 64 years old female with history of asthma and hypertension. Patient presented to the ER complaining of shortness of breath, wheezing and cough for the last 2 days. Patient stated that this is similar to her asthma attack however she has been taking her albuterol with no significant improvement. Patient denied any chest pain. She denied any fever or chills. No abdominal pain, nausea or vomiting. MD Complaint: shortness of breath, "asthma attack" -: Last night Severity: moderate Improves With: bronchodilators Known History Of: asthma Associated Symptoms: denies other symptoms Treatments Prior to Arrival: bronchodilator - Related Data Home Medications Medication Instructions Recorded Confirmed Last Taken Amitriptyline [Elavil] 25 mg PO QHS 07/17/18 10/15/18 Unknown Ibuprofen [Ibuprofen Ib 200] 200 mg PO Q4H 07/17/18 10/15/18 Unknown Multivit-Min/Iron/Folic Acid/K 1 each PO DAILY 07/17/18 10/15/18 Unknown [Centravites Adults Tablet] Omeprazole 20 mg PO QAM 07/17/18 10/15/18 Unknown PARoxetine (NF) [Paxil (Nf)] 30 mg PO DAILY 07/17/18 10/15/18 Unknown Levocetirizine Dihydrochloride 5 mg PO DAILY 10/15/18 10/15/18 Unknown Linaclotide [Linzess] 145 mcg PO QDAY 10/15/18 10/15/18 Unknown Montelukast [Singulair] 1 tab PO DAILY 10/15/18 10/15/18 Unknown Previous Rx's Medication Instructions Recorded Last Taken Type Albuterol Mdi (or & Nicu Only) 2 puff IH QID PRN #1 inhalation 06/17/18 Unknown Rx [ProAir HFA Inhaler] Acetaminophen [Acetaminophen TAB] 650 mg PO Q4H PRN tablet 10/15/18 Unknown Rx Aspirin EC [Ecotrin] 325 mg PO QDAY tablet 10/15/18 Unknown Rx AtorvaSTATin 10 mg PO QHS tablet 10/15/18 Unknown Rx Zolpidem [Ambien] 5 mg PO QHS PRN tablet 10/15/18 Unknown Rx amLODIPine 10 mg PO DAILY #30 tablet 10/15/18 Unknown Rx atenoloL [Tenormin] 25 mg PO DAILY #30 tablet 10/15/18 Unknown Rx Famotidine [Pepcid] 20 mg PO BID #20 tablet 01/05/19 Unknown Rx Ondansetron [Zofran Odt] 4 mg PO Q8HR PRN #20 tab.rapdis 01/05/19 Unknown Rx traMADoL [Ultram 50 MG tab] 50 mg PO Q6HR PRN #20 tablet 01/05/19 Unknown Rx Docusate Sodium [Colace] 100 mg PO BID 10 Days #20 capsule 02/06/19 Unknown Rx HYDROcodone/APAP 5-325 [Sikes 1 each PO Q6HR PRN #10 tablet 02/06/19 Unknown Rx 5/325] Allergies Allergy/AdvReac Type Severity Reaction Status Date / Time No Known Allergies Allergy Verified 02/26/20 17:06 ED Review of Systems ROS: Stated complaint: ASTHMA Other details as noted in HPI Comment: All other systems reviewed and negative Constitutional: denies: chills, fever Respiratory: cough, shortness of breath, SOB with exertion, SOB at rest, wheezing. 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 bronchitis - Surgical History Past Surgical History?: Yes Hx Cholecystectomy: Yes Additional Surgical History: c/s, hyst, lump from under arm, lump from hip - Social History Smoking Status: Current Every Day Smoker - Medications Home Medications: Home Medications Medication Instructions Recorded Confirmed Last Taken Type Albuterol Mdi (or & Nicu Only) 2 puff IH QID PRN #1 inhalation 06/17/18 10/15/18 Unknown Rx [ProAir HFA Inhaler] Amitriptyline [Elavil] 25 mg PO QHS 07/17/18 10/15/18 Unknown History Ibuprofen [Ibuprofen Ib 200] 200 mg PO Q4H 07/17/18 10/15/18 Unknown History Multivit-Min/Iron/Folic Acid/K 1 each PO DAILY 07/17/18 10/15/18 Unknown History [Centravites Adults Tablet] Omeprazole 20 mg PO QAM 07/17/18 10/15/18 Unknown History PARoxetine (NF) [Paxil (Nf)] 30 mg PO DAILY 07/17/18 10/15/18 Unknown History Acetaminophen [Acetaminophen TAB] 650 mg PO Q4H PRN tablet 10/15/18 Unknown Rx Aspirin EC [Ecotrin] 325 mg PO QDAY tablet 10/15/18 Unknown Rx AtorvaSTATin 10 mg PO QHS tablet 10/15/18 Unknown Rx Levocetirizine Dihydrochloride 5 mg PO DAILY 10/15/18 10/15/18 Unknown History Linaclotide [Linzess] 145 mcg PO QDAY 10/15/18 10/15/18 Unknown History Montelukast [Singulair] 1 tab PO DAILY 10/15/18 10/15/18 Unknown History Zolpidem [Ambien] 5 mg PO QHS PRN tablet 10/15/18 Unknown Rx amLODIPine 10 mg PO DAILY #30 tablet 10/15/18 Unknown Rx atenoloL [Tenormin] 25 mg PO DAILY #30 tablet 10/15/18 Unknown Rx Famotidine [Pepcid] 20 mg PO BID #20 tablet 01/05/19 Unknown Rx Ondansetron [Zofran Odt] 4 mg PO Q8HR PRN #20 tab.rapdis 01/05/19 Unknown Rx traMADoL [Ultram 50 MG tab] 50 mg PO Q6HR PRN #20 tablet 01/05/19 Unknown Rx Docusate Sodium [Colace] 100 mg PO BID 10 Days #20 capsule 02/06/19 Unknown Rx HYDROcodone/APAP 5-325 [Sikes 1 each PO Q6HR PRN #10 tablet 02/06/19 Unknown Rx 5/325] ED Physical Exam - General Limitations: No Limitations General appearance: alert, in no apparent distress - Head Head exam: Present: atraumatic, normocephalic, normal inspection - Eye Eye exam: Present: normal appearance, PERRL - ENT ENT exam: Present: normal exam, normal orophraynx, mucous membranes moist - Neck Neck exam: Present: normal inspection, full ROM. Absent: tenderness, meningismus - Respiratory Respiratory exam: Present: normal lung sounds bilaterally. Absent: respiratory distress, wheezes, rales, rhonchi, chest wall tenderness, accessory muscle use, decreased breath sounds, prolonged expiratory - Cardiovascular Cardiovascular Exam: Present: regular rate, normal rhythm, normal heart sounds - GI/Abdominal GI/Abdominal exam: Present: soft, normal bowel sounds. Absent: distended, tenderness, guarding, rebound, rigid, organomegaly, mass, bruit, pulsatile mass, hernia - Extremities Exam Extremities exam: Present: normal inspection, full ROM, normal capillary refill. Absent: pedal edema, calf tenderness - Back Exam Back exam: Present: normal inspection, full ROM. Absent: CVA tenderness (R), CVA tenderness (L) - Neurological Exam Neurological exam: Present: alert, oriented X3, CN II-XII intact, normal gait, reflexes normal. Absent: motor sensory deficit - Psychiatric Psychiatric exam: Present: normal mood - Skin Skin exam: Present: warm, intact, normal color ED Course Vital Signs 03/28/20 03/28/20 03/28/20 00:45 01:00 01:15 Pulse Rate 56 L 58 L Respiratory 16 18 Rate Blood Pressure 132/71 132/71 O2 Sat by Pulse 100 100 97 Oximetry 03/28/20 01:24 Pulse Rate Respiratory 18 Rate Blood Pressure O2 Sat by Pulse Oximetry ED Medical Decision Making - Lab Data Result diagrams: 03/27/20 22:30 03/27/20 22:30 - EKG Data -: EKG Interpreted by Ms EKG shows normal: sinus rhythm Rate: bradycardia - EKG Data Interpretation: no acute changes - Radiology Data Radiology results: report reviewed - Medical Decision Making Patient is 64 years old female with history of asthma and hypertension. Patient presented to the ER complaining of shortness of breath, wheezing and cough for the last 2 days. Patient stated that this is similar to her asthma attack however she has been taking her albuterol with no significant improvement. Patient denied any chest pain. She denied any fever or chills. No abdominal pa in, nausea or vomiting. Patient remained stable with a stable vital sign. EKG shows sinus bradycardia. Patient is taking amlodipine and atenolol for blood pressure. I discussed with the patient that might be the cause for her sinus bradycardia and she need to discuss with her primary care physician to see if they changed 1 of the medication. Labs reviewed and is unremarkable. Chest x-ray is negative for acute finding. I believe patient symptom is most likely related to her asthma attack. Patient given prescription for prednisone and advised to follow-up with her primary doctor in the next 2 to 3 days and to return to the ER if she develop any new symptoms. Critical care attestation.: If time is entered above; I have spent that time in minutes in the direct care of this critically ill patient, excluding procedure time. ED Disposition Clinical Impression: Shortness of breath, Asthma exacerbation Disposition: - TO HOME OR SELFCARE Is pt being admited?: No Condition: Stable Instructions: Asthma (ED), Dyspnea (ED) Referrals: PRIMARY CARE, [Primary Care Provider] - 3-5 Days
== END 2020-03-28 03:20 | disposition home or self-care (01) ==
LOC: ED 21:55
DX: J45.901 Unspecified asthma with (acute) exacerbation (principal); I10 Essential (primary) hypertension; K21.9 Gastro-esophageal reflux disease without esophagitis; M13.88 Other specified arthritis, other site; F17.200 Nicotine dependence, unspecified, uncomplicated; Z90.49 Acquired absence of other specified parts of digestive tract; Z79.899 Other long term (current) drug therapy
CPT/HCPCS: 36415; 71046; 80048; 83880; 84484; 85025; 93005

== ENCOUNTER 2022-01-02 22:57 | Emergency (ER) | payer MEDICARE ==
--- NOTE | 2022-01-03 07:55 | Emergency Department Report ---
ED Chest Pain HPI - General Chief Complaint: Chest Pain Stated Complaint: CHEST PAIN Time Seen by Provider: 01/03/22 07:28 Source: patient Mode of arrival: Ambulatory Limitations: No Limitations - History of Present Illness Initial Comments: 66-year-old black female with a past medical history of hypertension, COPD, GERD, rheumatoid arthritis, and asthma presents to the emergency department for evaluation of 1 day history of left chest pain. She states that 1 week ago she was trapped inside of an elevator, had what she thought was a panic attack, and had severe left-sided chest pain. She states that after she was out of the elevator that the pain completely resolved. She states that she had the same type of pain a couple days later while she was in the elevator again. She states that yesterday around 5 PM, she developed the same type of pain when she was not seen in the elevator to her left chest that radiated down her left arm, was associated with dizziness, it was a 9 out of 10 when she was not in the elevator so she decided to come into the emergency department. She states that pain is still 5 out of 10, and not reproducible. She denies shortness of breath, nausea, vomiting, and diaphoresis. Of note, patient states that she has had urinary frequency over the past several days but denies dysuria, fever, abdominal pain, and back pain. MD Complaint: chest pain -: Sudden, days(s) (1) Onset: during rest Pain Location: left chest Pain Radiation: LUE Severity: moderate Severity scale (0 -10): 5 Quality: aching Consistency: constant re: denies: nausea, vomting, diaphoresis, dyspnea, sense of impending doom Other Symptoms: denies: cough, fever, syncope, rash, acid taste in mouth, leg swelling, palpitations, burping Treatments Prior to Arrival: none Aspirin use within the Past 7 Days: (0) No - Related Data On Oral Contraceptives: No Home Medications Medication Instructions Recorded Confirmed Last Taken Amitriptyline [Elavil] 25 mg PO QHS 07/17/18 10/15/18 Unknown Ibuprofen [Ibuprofen Ib 200] 200 mg PO Q4H 07/17/18 10/15/18 Unknown Multivit-Min/Iron/Folic Acid/K 1 each PO DAILY 07/17/18 10/15/18 Unknown [Centravites Adults Tablet] Omeprazole 20 mg PO QAM 07/17/18 10/15/18 Unknown PARoxetine (NF) [Paxil (Nf)] 30 mg PO DAILY 07/17/18 10/15/18 Unknown Levocetirizine Dihydrochloride 5 mg PO DAILY 10/15/18 10/15/18 Unknown Linaclotide [Linzess] 145 mcg PO QDAY 10/15/18 10/15/18 Unknown Montelukast [Singulair] 1 tab PO DAILY 10/15/18 10/15/18 Unknown Previous Rx's Medication Instructions Recorded Last Taken Type Albuterol Mdi (or & Nicu Only) 2 puff IH QID PRN #1 inhalation 06/17/18 Unknown Rx [ProAir HFA Inhaler] Acetaminophen [Acetaminophen TAB] 650 mg PO Q4H PRN tablet 10/15/18 Unknown Rx Aspirin EC [Ecotrin] 325 mg PO QDAY tablet 10/15/18 Unknown Rx AtorvaSTATin 10 mg PO QHS tablet 10/15/18 Unknown Rx Zolpidem [Ambien] 5 mg PO QHS PRN tablet 10/15/18 Unknown Rx amLODIPine 10 mg PO DAILY #30 tablet 10/15/18 Unknown Rx atenoloL [Tenormin] 25 mg PO DAILY #30 tablet 10/15/18 Unknown Rx Famotidine [Pepcid] 20 mg PO BID #20 tablet 01/05/19 Unknown Rx Ondansetron [Zofran Odt] 4 mg PO Q8HR PRN #20 tab.rapdis 01/05/19 Unknown Rx traMADoL [Ultram 50 MG tab] 50 mg PO Q6HR PRN #20 tablet 01/05/19 Unknown Rx Docusate Sodium [Colace] 100 mg PO BID 10 Days #20 capsule 02/06/19 Unknown Rx HYDROcodone/APAP 5-325 [Amboy 1 each PO Q6HR PRN #10 tablet 02/06/19 Unknown Rx 5/325] Prednisone [predniSONE 10 mg 10 mg PO .TAPER #1 tab.ds.pk 03/28/20 Unknown Rx (6-Day Pack, 21 Tabs)] Ciprofloxacin HCl [Ciprofloxacin 250 mg PO BID 5 Days #10 tab 01/03/22 Unknown Rx TAB] clonazePAM [ Klonopin] 0.5 mg PO BID PRN #12 tab 01/03/22 Unknown Rx Allergies Allergy/AdvReac Type Severity Reaction Status Date / Time No Known Allergies Allergy Verified 02/26/20 17:06 Heart Score - HEART Score History: Slightly suspicious EKG: Normal Age: 45-65 Risk factors: 1-2 risk factors Troponin: < normal limit HEART Score: 2 - EKG Read Time Time EKG Completed: 23:31 EKG Read Time: 23:35 - Critical Actions Critical Actions: 0-3 pts:0.9-1.7%risk of adverse cardiac event.Candidate for discharge ED Review of Systems ROS: Stated complaint: CHEST PAIN Other details as noted in HPI Comment: All other systems reviewed and negative Constitutional: denies: chills, fever, malaise, weakness Eyes: denies: vision change ENT: denies: dental pain, congestion Respiratory: denies: cough, orthopnea, shortness of breath, SOB with exertion, SOB at rest, stridor, wheezing Cardiovascular: chest pain. denies: palpitations, dyspnea on exertion, orthopnea, edema, syncope, paroxysmal nocturnal dyspnea Gastrointestinal: denies: abdominal pain, nausea, vomiting, diarrhea, hematemesis, melena, hematochezia Genitourinary: frequency. 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 bronchitis - Surgical History Past Surgical History?: Yes Hx Cholecystectomy: Yes Additional Surgical History: c/s, hyst, lump from under arm, lump from hip - Social History Smoking Status: Never Smoker Substance Use Type: None - Medications Home Medications: Home Medications Medication Instructions Recorded Confirmed Last Taken Type Albuterol Mdi (or & Nicu Only) 2 puff IH QID PRN #1 inhalation 06/17/18 10/15/18 Unknown Rx [ProAir HFA Inhaler] Amitriptyline [Elavil] 25 mg PO QHS 07/17/18 10/15/18 Unknown History Ibuprofen [Ibuprofen Ib 200] 200 mg PO Q4H 07/17/18 10/15/18 Unknown History Multivit-Min/Iron/Folic Acid/K 1 each PO DAILY 07/17/18 10/15/18 Unknown History [Centravites Adults Tablet] Omeprazole 20 mg PO QAM 07/17/18 10/15/18 Unknown History PARoxetine (NF) [Paxil (Nf)] 30 mg PO DAILY 07/17/18 10/15/18 Unknown History Acetaminophen [Acetaminophen TAB] 650 mg PO Q4H PRN tablet 10/15/18 Unknown Rx Aspirin EC [Ecotrin] 325 mg PO QDAY tablet 10/15/18 Unknown Rx AtorvaSTATin 10 mg PO QHS tablet 10/15/18 Unknown Rx Levocetirizine Dihydrochloride 5 mg PO DAILY 10/15/18 10/15/18 Unknown History Linaclotide [Linzess] 145 mcg PO QDAY 10/15/18 10/15/18 Unknown History Montelukast [Singulair] 1 tab PO DAILY 10/15/18 10/15/18 Unknown History Zolpidem [Ambien] 5 mg PO QHS PRN tablet 10/15/18 Unknown Rx amLODIPine 10 mg PO DAILY #30 tablet 10/15/18 Unknown Rx atenoloL [Tenormin] 25 mg PO DAILY #30 tablet 10/15/18 Unknown Rx Famotidine [Pepcid] 20 mg PO BID #20 tablet 01/05/19 Unknown Rx Ondansetron [Zofran Odt] 4 mg PO Q8HR PRN #20 tab.rapdis 01/05/19 Unknown Rx traMADoL [Ultram 50 MG tab] 50 mg PO Q6HR PRN #20 tablet 01/05/19 Unknown Rx Docusate Sodium [Colace] 100 mg PO BID 10 Days #20 capsule 02/06/19 Unknown Rx HYDROcodone/APAP 5-325 [Amboy 1 each PO Q6HR PRN #10 tablet 02/06/19 Unknown Rx 5/325] Prednisone [predniSONE 10 mg 10 mg PO .TAPER #1 tab.ds.pk 03/28/20 Unknown Rx (6-Day Pack, 21 Tabs)] Ciprofloxacin HCl [Ciprofloxacin 250 mg PO BID 5 Days #10 tab 01/03/22 Unknown Rx TAB] clonazePAM [ Klonopin] 0.5 mg PO BID PRN #12 tab 01/03/22 Unknown Rx ED Physical Exam - General Limitations: No Limitations General appearance: alert, in no apparent distress - Head Head exam: Present: atraumatic, normocephalic - Eye Eye exam: Present: normal appearance. Absent: scleral icterus, conjunctival injection, periorbital swelling, periorbital tenderness - Neck Neck exam: Present: normal inspection, full ROM. Absent: tenderness, lymphadenopathy, thyromegaly - Respiratory Respiratory exam: Present: normal lung sounds bilaterally. Absent: respiratory distress, wheezes, rales, rhonchi, stridor, chest wall tenderness - Cardiovascular Cardiovascular Exam: Present: regular rate, normal heart sounds - GI/Abdominal GI/Abdominal exam: Present: soft, normal bowel sounds. Absent: distended, te nderness, guarding, rebound, rigid - Extremities Exam Extremities exam: Present: normal inspection, full ROM, normal capillary refill. Absent: tenderness, pedal edema, joint swelling, calf tenderness - Back Exam Back exam: Present: normal inspection. Absent: CVA tenderness (R), CVA tenderness (L), paraspinal tenderness, vertebral tenderness - Neurological Exam Neurological exam: Present: alert, oriented X3, CN II-XII intact, normal gait - Psychiatric Psychiatric exam: Present: normal affect, normal mood - Skin Skin exam: Present: warm, dry, intact, normal color ED Course Vital Signs 01/02/22 01/03/22 01/03/22 23:56 02:36 07:40 Temperature 98.4 F 98.6 F Pulse Rate 61 56 L 75 Respiratory 16 18 18 Rate Blood Pressure 158/81 Blood Pressure 149/74 158/82 [Right] O2 Sat by Pulse 100 100 100 Oximetry 01/03/22 01/03/22 07:44 11:11 Temperature 98.6 F Pulse Rate 89 Respiratory 20 Rate Blood Pressure Blood Pressure 148/88 [Right] O2 Sat by Pulse 100 99 Oximetry PANCHITO score - Panchito Score Age > 65: (0) No Aspirin use within the Past 7 Days: (0) No 3 or more CAD Risk Factors: (0) No 2 or more Angina events in past 24 hrs: (1) Yes Known CAD with more than 50% Stenosis: (0) No Elevated Cardiac Markers: (0) No ST Deviation Greater than 0.5mm: (0) No PANCHITO Score: 1 ED Medical Decision Making - Lab Data Result diagrams: 01/03/22 07:47 01/03/22 07:47 - Radiology Data Radiology results: report reviewed, image reviewed CXR: FINDINGS: SUPPORT DEVICES: None. HEART / MEDIASTINUM: No significant abnormality. LUNGS / PLEURA: No significant pulmonary or pleural abnormality. No pneumothorax. ADDITIONAL FINDINGS: No significant additional findings. IMPRESSION: 1. No acute findings. - Medical Decision Making 66-year-old black female with a past medical history of hypertension, COPD, GERD, rheumatoid arthritis, and asthma presents to the emergency department for evaluation of 1 day history of left chest pain. She states that 1 week ago she was trapped inside of an elevator, had what she thought was a panic attack, and had severe left-sided chest pain. She states that after she was out of the elevator that the pain completely resolved. She states that she had the same type of pain a couple days later while she was in the elevator again. She states that yesterday around 5 PM, she developed the same type of pain when she was not seen in the elevator to her left chest that radiated down her left arm, was associated with dizziness, it was a 9 out of 10 when she was not in the elevator so she decided to come into the emergency department. She states that pain is still 5 out of 10, and not reproducible. She denies shortness of breath, nausea, vomiting, and diaphoresis. Of note, patient states that she has had urinary frequency over the past several days but denies dysuria, fever, abdominal pain, and back pain. Physical exam unremarkable. Ekg without any acute ischemic changes noted, cxr wnl, troponin wnl. Low suspicion for ACS, and cp like related to anxiety. Patient noted to have uti. She will be d/coleen home with cipro and klonopin to take as directed and advised to follow up with pcp, cardiology, and her mental health profession for further evaluation and management. She is advised to return to ed as needed. Critical care attestation.: If time is entered above; I have spent that time in minutes in the direct care of this critically ill patient, excluding procedure time. ED Disposition Clinical Impression: Anxiety Chest pain Qualifiers: Chest pain type: unspecified Qualified Code(s): R07.9 - Chest pain, unspecified UTI (urinary tract infection) Qualifiers: Hematuria presence: without hematuria Disposition: HOME / SELF CARE / HOMELESS Is pt being admited?: No Does the pt Need Aspirin: No Condition: Stable Instructions: Nonspecific Chest Pain, Adult, Urinary Tract Infection, Adult, [id number], Nonspecific Chest Pain, Adult, [id number], Managing Anxiety, Adult Additional Instructions: Take medications as prescribed. Follow-up with your primary care provider and cardiology for further evaluation and management. Return to the emergency department for any concerning symptoms. Prescriptions: Ciprofloxacin HCl [Ciprofloxacin TAB] 250 mg PO BID 5 Days #10 tab clonazePAM [ Klonopin] 0.5 mg PO BID PRN #12 tab PRN Reason: Anxiety Referrals: AMY JENNINGS MD [Staff Physician] - 3-5 Days FARIBA VALENCIA MD [Staff Physician] - 3-5 Days Time of Disposition: 10:13
--- NOTE | 2022-01-03 08:32 | XRay Report ---
CHEST 2 VIEWS INDICATION / CLINICAL INFORMATION: chest pain. COMPARISON: 03/27/2020 FINDINGS: SUPPORT DEVICES: None. HEART / MEDIASTINUM: No significant abnormality. LUNGS / PLEURA: No significant pulmonary or pleural abnormality. No pneumothorax. ADDITIONAL FINDINGS: No significant additional findings. IMPRESSION: 1. No acute findings. Signer Name: Slim Davis DO Signed: 01/03/2022 8:28 AM Workstation Name: [id number]
[2022-01-03 09:10] LABS: Hematocrit 39.3 % (30.3-42.9); Hemoglobin 12.7 gm/dl (10.1-14.3); Mean Corpuscular HGB Conc 32 % (30-34); Mean Corpuscular Volume 85 fl (79-97); Platelet Count 187 K/mm3 (140-440); Red Blood Count 4.63 M/mm3 (3.65-5.03); Red Cell Distribution Width 13.5 % (13.2-15.2)
[2022-01-03 09:21] LABS: Mucus,Urine FEW /HPF
[2022-01-03 09:28] LABS: Alanine Aminotransferase 16 units/L (7-56); Albumin 4.8 g/dL (3.9-5); BUN/Creatinine Ratio 13; Blood Urea Nitrogen 10 mg/dL (7-17); Calcium 9.8 mg/dL (8.4-10.2); Hemolysis Index 0
[2022-01-03 09:43] LABS: Bilirubin,Urine Moderate (Negative); Color,Urine Straw (Yellow)
[2022-01-03 09:44] LABS: Blood,Urine Negative (Negative); Protein,Urine <15 mg/dL mg/dL (Negative); Urobilinogen,Urine < 2.0 mg/dL (<2.0)
[2022-01-03 09:58] LABS: Ictotest,Urine Positive (Negative)
[2022-01-03 11:13] VITALS: BP 148/88
--- NOTE | 2022-01-04 14:06 | Electrocardiograph Report ---
[facility] Test Date: 2022-01-02 Test Time: 20:26:07 Pat Name: TAMMY SCHULTZ Department: Room: Gender: F [employer] Professor: HARIKA : 1955 Requested By: DAR SONG Order Number: [id number] Reading MD: Asuncion Lange Measurements Intervals [place] Rate: 87 P: 63 [place]: 122 QRS: 65 QRSD: 77 T: -18 QT: 334 QTc: 410 Interpretive Statements Marked sinus arrhythmia Consider left ventricular hypertrophy No previous ECG available for comparison Electronically Signed On 01-04-2022 14:06:24 EDT by Asuncion Lange
--- NOTE | 2022-01-04 14:06 | Electrocardiograph Report ---
[facility] Test Date: 2022-01-02 Test Time: 23:31:35 Pat Name: TAMMY SCHULTZ Department: Room: Gender: F [place] Performer: HARIKA : 1955 Requested By: DAR SONG Order Number: [id number] Reading MD: Asuncion Lange Measurements Intervals [place] Rate: 59 P: 42 [place]: 128 QRS: 21 QRSD: 78 T: 43 QT: 429 QTc: 426 Interpretive Statements Sinus rhythm No previous ECG available for comparison Electronically Signed On 01-04-2022 14:06:28 EDT by Asuncion Lange
== END 2022-01-03 11:18 | disposition home or self-care (01) ==
LOC: ED 22:57
DX: R07.9 Chest pain, unspecified (principal); N39.0 Urinary tract infection, site not specified; F41.9 Anxiety disorder, unspecified; I10 Essential (primary) hypertension; K21.9 Gastro-esophageal reflux disease without esophagitis; M19.90 Unspecified osteoarthritis, unspecified site; J45.909 Unspecified asthma, uncomplicated; Z98.890 Other specified postprocedural states
CPT/HCPCS: 36415; 71046; 80053; 81001; 84484; 85027; 87086; 93005; 99284